=== PATIENT | female | born 1940 | race Caucasian/White ===

== ENCOUNTER 2017-04-20 15:27 | Inpatient (IN) | payer MEDICARE, BC ==
[~2017-04-20] VITALS: Ht 162.6 cm; Wt 87.0 kg
[2017-04-20 16:44] LABS: CLARITY,URINE CLEAR (Clear); COLOR,URINE YELLOW (Yellow); GLUCOSE, URINE NEGATIVE (Neg); KETONES,URINE NEGATIVE (Neg); LEUKOCYTE ESTERASE ,URINE NEGATIVE (Neg); NITRITES, URINE NEGATIVE (Neg); OCCULT BLOOD,URINE NEGATIVE (Neg); PROTEIN,URINE NEGATIVE (Neg); UROBILINOGEN,URINE 0.2 E.U/dL (0.2-1.0)
[2017-04-20 16:48] LABS: UA COLLECTION TYPE CLN CATCH MIDSTREAM
[2017-04-20 16:49] LABS: BASOPHILS # (AUTO) 0.1 X10'3 (0-0.2); EOSINOPHILS # (AUTO) 0.2 X10'3 (0-0.9); EOSINOPHILS % (AUTO) 1.6 % (0-6); HEMATOCRIT 40.5 % (35.0-45.0); HEMOGLOBIN 13.9 g/dl (12.0-16.0); LYMPHOCYTES # (AUTO) 1.4 X10'3 (1.1-4.8); LYMPHOCYTES % (AUTO) 9.3 % (21-51); MEAN CORPUSCULAR HGB CONC 34.4 % (33.0-36.5); MEAN PLATELET VOLUME 7.8 FL (7.4-10.4); MONOCYTES # (AUTO) 1.1 X10'3 (0-0.9); MONOCYTES % (AUTO) 7.4 % (2-12); NEUTROPHILS # (AUTO) 11.9 X10'3 (1.8-7.7); NEUTROPHILS % (AUTO) 80.7 % (42-75); PLATELET COUNT 251 X10'3 (140-440); RED BLOOD COUNT 4.35 X10'6 (4.20-5.60); RED CELL DISTRIBUTION WIDTH 13.3 % (11.5-14.5); WHITE BLOOD COUNT 14.7 X10'3 (4.5-11.0)
[2017-04-20 16:57] LABS: INR 0.9 INR; PARTIAL THROMBOPLASTIN TIME 31 SECONDS (22-32); PROTHROMBIN TIME 9.6 SECONDS (9.0-12.0)
[2017-04-20 17:03] LABS: ALANINE AMINOTRANSFERASE 31 U/L (12-78); ALBUMIN 3.9 G/DL (3.4-5.0); ALBUMIN/GLOBULIN RATIO 0.9 (1.1-1.5); ALKALINE PHOSPHATASE 131 IU/L (46-116); ANION GAP 11 (8-16); ASPARTATE AMINO TRANSFERASE 18 U/L (10-37); BILIRUBIN,TOTAL 0.5 MG/DL (0.1-1.0); BLOOD UREA NITROGEN 14 MG/DL (7-18); BUN/CREATININE RATIO 17.3 (6.6-38.0); CALCIUM 10.8 MG/DL (8.5-10.1); CHLORIDE 102 MMOL/L (99-107); CREATININE 0.81 MG/DL (0.40-0.90); GLUCOSE 101 MG/DL (70-104); POTASSIUM 3.8 MMOL/L (3.5-5.1); SODIUM 139 MMOL/L (135-145); TOTAL CARBON DIOXIDE 25.6 MMOL/L (24-32); TOTAL PROTEIN 8.3 G/DL (6.4-8.2); eGFR 69 ML/MIN
[2017-04-20] MEDS ORDERED: TETanus/Pertussis (Acell)/Diphther VAC/PF (Tdap-Adult) 0.5ml syringe IMVAC ONE (17:55)
[2017-04-20] MEDS ORDERED: LIDOcaine 1% 30ml preserv. free vial SQ STA (18:02)
[2017-04-20] MEDS ORDERED: bacitracin 15gm ointment TP ONE (18:35)
[2017-04-20] MEDS ORDERED: cefazolin 1gm/NS 100mL 100 ML IV ONE (18:40)
[2017-04-20] MEDS ORDERED: clindamycin phosphate inj 300 MG in dextrose 5%-water 50ml 48 ML IV ONE (19:12)
[2017-04-20] MEDS ORDERED: ondansetron/PF 4mg/2ml inj IV PRN (19:30)
[2017-04-20] MEDS ORDERED: mag hydrox/Alum hydrox/simeth 30ml oral suspension PO PRN (19:30)
[2017-04-20] MEDS ORDERED: magnesium hydroxide 30ml (MOM) UD suspension PO PRN (19:30)
[2017-04-20] MEDS ORDERED: acetaminophen 325mg tablet PO PRN (19:30)
[2017-04-20] MEDS ORDERED: SERT25TA PO (20:00)
[2017-04-20] MEDS ORDERED: FLEC100T2 PO (20:00)
[2017-04-20] MEDS ORDERED: SIMV20TA5 PO (20:00)
[2017-04-20] MEDS ORDERED: AMIT-189 PO (20:00)
[2017-04-20] MEDS ORDERED: [UNRECOGNIZED DRUG - CODE] PO (20:00)
[2017-04-20] MEDS ORDERED: LAMO100T2 PO (20:00)
[2017-04-20] MEDS ORDERED: PREG50CA PO (20:00)
[2017-04-20] MEDS: heparin, porcine 5000 units/ml vial SQ SCH (20:22)
[2017-04-20] MEDS: atorvastatin 20mg tablet PO SCH (21:00)
[2017-04-20] MEDS ORDERED: non-formulary drug (Simvastatin* (Zocor*) 2 TAB) PO SCH (21:00)
[2017-04-20] MEDS ORDERED: amitryptiline 50mg tablet PO SCH (21:00)
[2017-04-21] MEDS ORDERED: non-formulary drug (Pregabalin (Lyrica) 1 CAP) PO SCH
[2017-04-21] MEDS: pregabalin 25mg capsule PO SCH ×2 (00:47→08:00)
[2017-04-21] MEDS ORDERED: flecainide 50mg tablet PO SCH (01:50)
[2017-04-21] MEDS ORDERED: lamoTRIgine 100mg tablet PO ONE (01:50)
[2017-04-21] MEDS ORDERED: sertraline 50mg tablet PO ONE (01:50)
[2017-04-21 05:15] LABS: BASOPHILS % (AUTO) 0.2 % (0-1); EOSINOPHILS # (AUTO) 0.4 X10'3 (0-0.9); EOSINOPHILS % (AUTO) 3.5 % (0-6); HEMATOCRIT 38.1 % (35.0-45.0); HEMOGLOBIN 12.9 g/dl (12.0-16.0); LYMPHOCYTES # (AUTO) 1.3 X10'3 (1.1-4.8); LYMPHOCYTES % (AUTO) 11.6 % (21-51); MEAN CORPUSCULAR HEMOGLOBIN 32.2 PG (27.0-31.0); MEAN CORPUSCULAR VOLUME 94.9 FL (78-98); MEAN PLATELET VOLUME 7.6 FL (7.4-10.4); MONOCYTES # (AUTO) 1.1 X10'3 (0-0.9); MONOCYTES % (AUTO) 9.1 % (2-12); NEUTROPHILS # (AUTO) 8.8 X10'3 (1.8-7.7); NEUTROPHILS % (AUTO) 75.6 % (42-75); PLATELET COUNT 221 X10'3 (140-440); RED BLOOD COUNT 4.01 X10'6 (4.20-5.60); RED CELL DISTRIBUTION WIDTH 14.2 % (11.5-14.5); WHITE BLOOD COUNT 11.6 X10'3 (4.5-11.0)
[2017-04-21 05:32] LABS: ALANINE AMINOTRANSFERASE 25 U/L (12-78); ALBUMIN/GLOBULIN RATIO 0.8 (1.1-1.5); ALKALINE PHOSPHATASE 105 IU/L (46-116); ANION GAP 9 (8-16); ASPARTATE AMINO TRANSFERASE 14 U/L (10-37); BILIRUBIN,TOTAL 0.5 MG/DL (0.1-1.0); CALCIUM 10.1 MG/DL (8.5-10.1); CHLORIDE 107 MMOL/L (99-107); GLUCOSE 124 MG/DL (70-104); POTASSIUM 3.7 MMOL/L (3.5-5.1); SODIUM 141 MMOL/L (135-145); TOTAL CARBON DIOXIDE 24.8 MMOL/L (24-32); TOTAL PROTEIN 6.9 G/DL (6.4-8.2); eGFR 70 ML/MIN
[2017-04-21 05:52] LABS: BLOOD UREA NITROGEN 16 MG/DL (7-18)
[2017-04-21] MEDS ORDERED: non-formulary drug (Flecainide Acetate 1 TAB) PO SCH (08:00)
[2017-04-21] MEDS ORDERED: sertraline 25mg tablet PO SCH (08:00)
[2017-04-21] MEDS ORDERED: lamoTRIgine 100mg tablet PO SCH (08:00)
[2017-04-21] MEDS: heparin, porcine 5000 units/ml vial SQ SCH ×2 (09:16→20:38)
[2017-04-21] MEDS: flecainide 50mg tablet PO SCH ×2 (10:50→20:38)
[2017-04-21 12:16] VITALS: BP 143/67
[2017-04-21] MEDS ORDERED: LYR75C PO (12:25)
[2017-04-21] MEDS ORDERED: HYDROcodone/acetaminophen 5mg/325mg tablet PO PRN (14:10)
[2017-04-21] MEDS ORDERED: amitriptyline 10mg tablet PO SCH (15:00)
[2017-04-21] MEDS ORDERED: bisacodyl 5mg tablet.DR PO PRN (16:50)
[2017-04-21 17:16] VITALS: BP 141/83
[2017-04-21] MEDS ORDERED: famotidine 10mg tablet PO SCH (20:00)
[2017-04-21] MEDS: lactobacillus rhamnosus 10,000 MMU CELLS/CAPSULE PO SCH (20:37)
[2017-04-21] MEDS: docusate sod 100mg capsule PO SCH (20:37)
[2017-04-21] MEDS: famotidine 20mg tablet PO SCH (20:37)
[2017-04-21] MEDS: lamoTRIgine 100mg tablet PO SCH (20:38)
[2017-04-21] MEDS: pregabalin 75mg capsule PO SCH (20:38)
[2017-04-21] MEDS: atorvastatin 20mg tablet PO SCH (20:38)
[2017-04-21] MEDS: amitriptyline 10mg tablet PO SCH (20:38)
[2017-04-21] MEDS ORDERED: sertraline 50mg tablet PO SCH (21:00)
[2017-04-21] MEDS: sertraline 50mg tablet PO SCH (21:07)
[2017-04-21 22:00] VITALS: BP 145/77
[2017-04-22 06:00] VITALS: BP 135/74
[2017-04-22 06:30] LABS: BASOPHILS % (AUTO) 0.2 % (0-1); EOSINOPHILS # (AUTO) 0.5 X10'3 (0-0.9); EOSINOPHILS % (AUTO) 5.9 % (0-6); HEMATOCRIT 37.3 % (35.0-45.0); HEMOGLOBIN 12.7 g/dl (12.0-16.0); LYMPHOCYTES # (AUTO) 1.6 X10'3 (1.1-4.8); LYMPHOCYTES % (AUTO) 18.1 % (21-51); MEAN CORPUSCULAR HEMOGLOBIN 32.3 PG (27.0-31.0); MEAN CORPUSCULAR HGB CONC 34.1 % (33.0-36.5); MEAN CORPUSCULAR VOLUME 94.8 FL (78-98); MEAN PLATELET VOLUME 7.8 FL (7.4-10.4); MONOCYTES # (AUTO) 0.9 X10'3 (0-0.9); MONOCYTES % (AUTO) 10.7 % (2-12); NEUTROPHILS # (AUTO) 5.6 X10'3 (1.8-7.7); NEUTROPHILS % (AUTO) 65.1 % (42-75); PLATELET COUNT 232 X10'3 (140-440); RED BLOOD COUNT 3.93 X10'6 (4.20-5.60); RED CELL DISTRIBUTION WIDTH 14.3 % (11.5-14.5); WHITE BLOOD COUNT 8.6 X10'3 (4.5-11.0)
[2017-04-22 06:46] LABS: ALANINE AMINOTRANSFERASE 23 U/L (12-78); ALBUMIN/GLOBULIN RATIO 0.8 (1.1-1.5); ALKALINE PHOSPHATASE 104 IU/L (46-116); ANION GAP 9 (8-16); ASPARTATE AMINO TRANSFERASE 11 U/L (10-37); BILIRUBIN,TOTAL 0.4 MG/DL (0.1-1.0); BLOOD UREA NITROGEN 19 MG/DL (7-18); BUN/CREATININE RATIO 23.2 (6.6-38.0); CALCIUM 10.3 MG/DL (8.5-10.1); CHLORIDE 108 MMOL/L (99-107); CREATININE 0.82 MG/DL (0.40-0.90); GLUCOSE 129 MG/DL (70-104); POTASSIUM 4.1 MMOL/L (3.5-5.1); SODIUM 143 MMOL/L (135-145); TOTAL CARBON DIOXIDE 25.8 MMOL/L (24-32); eGFR 68 ML/MIN
[2017-04-22] MEDS: lactobacillus rhamnosus 10,000 MMU CELLS/CAPSULE PO SCH ×2 (08:45→21:54)
[2017-04-22] MEDS: docusate sod 100mg capsule PO SCH ×2 (08:45→21:54)
[2017-04-22] MEDS: famotidine 20mg tablet PO SCH ×2 (08:45→21:55)
[2017-04-22] MEDS: flecainide 50mg tablet PO SCH ×2 (08:46→21:55)
[2017-04-22] MEDS: amitriptyline 10mg tablet PO SCH ×4 (08:46→22:17)
[2017-04-22] MEDS: heparin, porcine 5000 units/ml vial SQ SCH ×2 (08:48→21:56)
[2017-04-22 10:00] VITALS: BP 133/58
[2017-04-22 18:00] VITALS: BP 149/73
[2017-04-22] MEDS: sertraline 50mg tablet PO SCH (21:53)
[2017-04-22] MEDS: pregabalin 75mg capsule PO SCH (21:53)
[2017-04-22] MEDS: atorvastatin 20mg tablet PO SCH (21:53)
[2017-04-22] MEDS: lamoTRIgine 100mg tablet PO SCH (22:15)
[2017-04-23 06:00] VITALS: BP 145/54
[2017-04-23 06:35] LABS: BASOPHILS % (AUTO) 0.3 % (0-1); EOSINOPHILS # (AUTO) 0.6 X10'3 (0-0.9); EOSINOPHILS % (AUTO) 6.5 % (0-6); HEMATOCRIT 37.8 % (35.0-45.0); HEMOGLOBIN 13.1 g/dl (12.0-16.0); LYMPHOCYTES # (AUTO) 1.7 X10'3 (1.1-4.8); MEAN CORPUSCULAR HEMOGLOBIN 32.6 PG (27.0-31.0); MEAN CORPUSCULAR HGB CONC 34.7 % (33.0-36.5); MEAN CORPUSCULAR VOLUME 93.9 FL (78-98); MEAN PLATELET VOLUME 7.7 FL (7.4-10.4); MONOCYTES # (AUTO) 0.8 X10'3 (0-0.9); MONOCYTES % (AUTO) 9.3 % (2-12); NEUTROPHILS # (AUTO) 5.5 X10'3 (1.8-7.7); NEUTROPHILS % (AUTO) 63.9 % (42-75); PLATELET COUNT 251 X10'3 (140-440); RED BLOOD COUNT 4.02 X10'6 (4.20-5.60); RED CELL DISTRIBUTION WIDTH 13.9 % (11.5-14.5); WHITE BLOOD COUNT 8.6 X10'3 (4.5-11.0)
[2017-04-23 07:07] LABS: ALANINE AMINOTRANSFERASE 26 U/L (12-78); ALBUMIN/GLOBULIN RATIO 0.8 (1.1-1.5); ALKALINE PHOSPHATASE 106 IU/L (46-116); ANION GAP 9 (8-16); ASPARTATE AMINO TRANSFERASE 15 U/L (10-37); BILIRUBIN,TOTAL 0.3 MG/DL (0.1-1.0); BLOOD UREA NITROGEN 20 MG/DL (7-18); CALCIUM 10.3 MG/DL (8.5-10.1); CHLORIDE 107 MMOL/L (99-107); CREATININE 0.87 MG/DL (0.40-0.90); GLUCOSE 137 MG/DL (70-104); POTASSIUM 4.5 MMOL/L (3.5-5.1); SODIUM 142 MMOL/L (135-145); TOTAL CARBON DIOXIDE 25.6 MMOL/L (24-32); eGFR 64 ML/MIN
[2017-04-23] MEDS: lactobacillus rhamnosus 10,000 MMU CELLS/CAPSULE PO SCH ×2 (07:41→20:18)
[2017-04-23] MEDS: flecainide 50mg tablet PO SCH ×2 (07:41→20:17)
[2017-04-23] MEDS: docusate sod 100mg capsule PO SCH ×2 (07:41→20:17)
[2017-04-23] MEDS: amitriptyline 10mg tablet PO SCH ×3 (07:41→20:27)
[2017-04-23] MEDS: famotidine 20mg tablet PO SCH ×2 (07:41→20:17)
[2017-04-23] MEDS: heparin, porcine 5000 units/ml vial SQ SCH ×2 (07:42→20:18)
[2017-04-23 10:00] VITALS: BP 130/60
[2017-04-23] MEDS: vancomycin/NS 1 GM ADD-VANTAGE 250 ML IV SCH ×2 (15:05→18:21)
[2017-04-23] MEDS ORDERED: atorvastatin 10mg tablet PO SCH (17:33)
[2017-04-23] MEDS: cefazolin 1gm/NS 100mL 100 ML IV SCH (17:35)
[2017-04-23 18:00] VITALS: BP 140/67
[2017-04-23] MEDS: pregabalin 75mg capsule PO SCH (20:17)
[2017-04-23] MEDS: lamoTRIgine 100mg tablet PO SCH (20:17)
[2017-04-23] MEDS: sertraline 50mg tablet PO SCH (20:17)
[2017-04-23 22:00] VITALS: BP 151/73
[2017-04-24] MEDS: cefazolin 1gm/NS 100mL 100 ML IV SCH ×2 (00:08→08:22)
[2017-04-24] MEDS: vancomycin inj 1,250 MG in normal saline 250ml IV soln 250 ML IV SCH ×2 (03:49→14:22)
[2017-04-24 05:47] LABS: BASOPHILS % (AUTO) 0.4 % (0-1); EOSINOPHILS # (AUTO) 0.5 X10'3 (0-0.9); EOSINOPHILS % (AUTO) 6.7 % (0-6); HEMATOCRIT 36.4 % (35.0-45.0); HEMOGLOBIN 12.6 g/dl (12.0-16.0); LYMPHOCYTES # (AUTO) 1.6 X10'3 (1.1-4.8); LYMPHOCYTES % (AUTO) 19.4 % (21-51); MEAN CORPUSCULAR HEMOGLOBIN 32.6 PG (27.0-31.0); MEAN CORPUSCULAR HGB CONC 34.6 % (33.0-36.5); MEAN CORPUSCULAR VOLUME 94.1 FL (78-98); MEAN PLATELET VOLUME 7.6 FL (7.4-10.4); MONOCYTES # (AUTO) 0.8 X10'3 (0-0.9); MONOCYTES % (AUTO) 9.4 % (2-12); NEUTROPHILS # (AUTO) 5.2 X10'3 (1.8-7.7); NEUTROPHILS % (AUTO) 64.1 % (42-75); PLATELET COUNT 253 X10'3 (140-440); RED BLOOD COUNT 3.87 X10'6 (4.20-5.60); RED CELL DISTRIBUTION WIDTH 13.4 % (11.5-14.5); WHITE BLOOD COUNT 8.1 X10'3 (4.5-11.0)
[2017-04-24 06:00] VITALS: BP 165/76
[2017-04-24 06:10] LABS: ALANINE AMINOTRANSFERASE 24 U/L (12-78); ALBUMIN 2.9 G/DL (3.4-5.0); ALBUMIN/GLOBULIN RATIO 0.7 (1.1-1.5); ALKALINE PHOSPHATASE 103 IU/L (46-116); ANION GAP 9 (8-16); ASPARTATE AMINO TRANSFERASE 15 U/L (10-37); BILIRUBIN,TOTAL 0.3 MG/DL (0.1-1.0); BLOOD UREA NITROGEN 22 MG/DL (7-18); BUN/CREATININE RATIO 22.7 (6.6-38.0); CALCIUM 10.3 MG/DL (8.5-10.1); CHLORIDE 107 MMOL/L (99-107); CREATININE 0.97 MG/DL (0.40-0.90); GLUCOSE 126 MG/DL (70-104); POTASSIUM 4.3 MMOL/L (3.5-5.1); SODIUM 140 MMOL/L (135-145); TOTAL CARBON DIOXIDE 24.5 MMOL/L (24-32); eGFR 56 ML/MIN
[2017-04-24] MEDS: amitriptyline 10mg tablet PO SCH ×2 (08:37→14:23)
[2017-04-24] MEDS: docusate sod 100mg capsule PO SCH (08:38)
[2017-04-24] MEDS: flecainide 50mg tablet PO SCH (08:38)
[2017-04-24] MEDS: famotidine 20mg tablet PO SCH (08:38)
[2017-04-24] MEDS: lactobacillus rhamnosus 10,000 MMU CELLS/CAPSULE PO SCH (08:38)
[2017-04-24] MEDS: heparin, porcine 5000 units/ml vial SQ SCH (08:39)
[2017-04-24 11:00] VITALS: BP 152/72
[2017-04-24] MEDS ORDERED: CEPH-572 PO (16:53)
[2017-04-24] MEDS ORDERED: LACTC PO (16:54)
[2017-04-25] MEDS ORDERED: VANCOMYCIN LEVEL IV ONE (13:30)
== END 2017-04-24 18:12 | disposition home or self-care (01) | DRG 872 ==
LOC: ER 15:27 → ED HOLD 19:29 → ORTHO 4S 04-21 11:40
PROVIDERS: ADMIT Internal Medicine; ATTEND Legal Medicine
PROC: 0R9M3ZX Drainage of Left Elbow Joint, Percutaneous Approach, Diagnostic (ICD-10-PCS; principal; 2017-04-20)
DX: A41.9 Sepsis, unspecified organism (principal); M00.9 Pyogenic arthritis, unspecified; E11.42 Type 2 diabetes mellitus with diabetic polyneuropathy; L03.114 Cellulitis of left upper limb; E66.9 Obesity, unspecified; D35.00 Benign neoplasm of unspecified adrenal gland; F31.9 Bipolar disorder, unspecified; G47.30 Sleep apnea, unspecified; G89.29 Other chronic pain; K59.09 Other constipation; M19.90 Unspecified osteoarthritis, unspecified site; M54.9 Dorsalgia, unspecified; Z96.653 Presence of artificial knee joint, bilateral; Z88.2 Allergy status to sulfonamides; Z88.0 Allergy status to penicillin; Z79.899 Other long term (current) drug therapy; Z68.32 Body mass index [BMI] 32.0-32.9, adult
CPT/HCPCS: 20605; 36415; 73080; 74176; 80053; 80305; 81003; 83036; 83605; 84145; 85025; 85610; 85730; 87040; 87070; 90471; 90715; 96365; 99285; A6212; A6223; A6446; J0690; J1644; J3370; J3490; J7030; J7060

== ENCOUNTER 2018-03-28 18:33 | Emergency (ER) | payer MEDICARE, BC ==
[~2018-03-28] VITALS: Ht 162.6 cm; Wt 74.8 kg
[~2018-03-28 18:33] MED LIST: AMIT-189 PO; FLEC100T2 PO; LACTC PO; LAMO100T2 PO; LYR75C PO; SERT25TA PO; SIMV20TA5 PO; [UNRECOGNIZED DRUG - CODE] PO
[2018-03-28 18:46] VITALS: BP 146/76
== END 2018-03-28 22:35 | disposition home or self-care (01) ==
LOC: ER 18:33
DX: S00.03XA Contusion of scalp, initial encounter (principal); S00.12XA Contusion of left eyelid and periocular area, initial encounter; S00.83XA Contusion of other part of head, initial encounter; M54.2 Cervicalgia; M25.511 Pain in right shoulder; Z88.0 Allergy status to penicillin; Z88.2 Allergy status to sulfonamides; Z79.899 Other long term (current) drug therapy; W01.0XXA Fall on same level from slipping, tripping and stumbling without subsequent striking against object, initial encounter; Y93.89 Activity, other specified; Y92.090 Kitchen in other non-institutional residence as the place of occurrence of the external cause; Y99.8 Other external cause status
CPT/HCPCS: 70450; 70486; 72125; 99284

== ENCOUNTER 2018-05-27 11:02 | Emergency (ER) | payer MEDICARE, BC ==
[~2018-05-27] VITALS: Ht 162.6 cm; Wt 75.0 kg
[2018-05-27 11:49] LABS: BASOPHILS % (AUTO) 0.3 % (0-1); EOSINOPHILS # (AUTO) 0.6 X10'3 (0-0.9); EOSINOPHILS % (AUTO) 6.4 % (0-6); HEMATOCRIT 36.3 % (35.0-45.0); LYMPHOCYTES # (AUTO) 1.3 X10'3 (1.1-4.8); MEAN CORPUSCULAR HEMOGLOBIN 31.5 PG (27.0-31.0); MEAN CORPUSCULAR HGB CONC 33.1 g/dL (33.0-36.5); MEAN CORPUSCULAR VOLUME 95.1 FL (78-98); MEAN PLATELET VOLUME 7.8 FL (7.4-10.4); MONOCYTES # (AUTO) 0.7 X10'3 (0-0.9); MONOCYTES % (AUTO) 7.5 % (2-12); NEUTROPHILS # (AUTO) 7.2 X10'3 (1.8-7.7); NEUTROPHILS % (AUTO) 72.8 % (42-75); PLATELET COUNT 215 X10'3 (140-440); RED BLOOD COUNT 3.82 X10'6 (4.20-5.60); RED CELL DISTRIBUTION WIDTH 13.6 % (11.5-14.5); WHITE BLOOD COUNT 9.9 X10'3 (4.5-11.0)
[2018-05-27 12:03] LABS: PARTIAL THROMBOPLASTIN TIME 30 SECONDS (22-32); PROTHROMBIN TIME 9.9 SECONDS (9.0-12.0)
[2018-05-27 12:05] LABS: ALANINE AMINOTRANSFERASE 20 U/L (12-78); ALBUMIN 3.3 G/DL (3.4-5.0); ALBUMIN/GLOBULIN RATIO 0.9 (1.1-1.5); ANION GAP 6 (8-16); ASPARTATE AMINO TRANSFERASE 14 U/L (10-37); BILIRUBIN,TOTAL 0.2 MG/DL (0.1-1.0); BLOOD UREA NITROGEN 21 MG/DL (7-18); BUN/CREATININE RATIO 23.1 (6.6-38.0); CALCIUM 10.3 MG/DL (8.5-10.1); CHLORIDE 103 MMOL/L (99-107); CREATININE 0.91 MG/DL (0.40-0.90); GLUCOSE 114 MG/DL (70-104); POTASSIUM 4.2 MMOL/L (3.5-5.1); SODIUM 133 MMOL/L (135-145); TOTAL CARBON DIOXIDE 24.2 MMOL/L (24-32); TOTAL PROTEIN 6.8 G/DL (6.4-8.2); eGFR 60 ML/MIN
[2018-05-27 12:06] LABS: ALKALINE PHOSPHATASE 114 IU/L (46-116)
--- NOTE | 2018-05-27 12:25 | NUR ---
dr. crawford at bedside.
[2018-05-27] MEDS ORDERED: albuterol 2.5 MG/3 ML nebule NEB ONE (12:30)
[2018-05-27] MEDS ORDERED: predniSONE 20 mg tablet PO ONE (12:50)
[2018-05-27] MEDS ORDERED: PRED20TA PO (13:02)
[2018-05-27] MEDS ORDERED: ALBU18HF2 INH (13:02)
[2018-05-27 13:21] VITALS: BP 138/71
== END 2018-05-27 13:24 | disposition home or self-care (01) ==
LOC: ER 11:03
DX: R06.2 Wheezing (principal); R05 Cough; I10 Essential (primary) hypertension; E78.00 Pure hypercholesterolemia, unspecified; Z88.0 Allergy status to penicillin; Z88.2 Allergy status to sulfonamides; Z79.899 Other long term (current) drug therapy
CPT/HCPCS: 36415; 71045; 80053; 83880; 84484; 85025; 85610; 85730; 93005; 94640; 94760; 99284; J7512

== ENCOUNTER 2018-09-19 07:20 | Day surgery (SDC) | payer MEDICARE, BC ==
[~2018-09-19] VITALS: Ht 162.6 cm; Wt 82.4 kg
[2018-09-19] VITALS (14 sets, daily range): BP systolic 133–192; BP diastolic 68–90
[~2018-09-19 07:20] MED LIST changes: +ALBU18HF2 INH
[2018-09-19] MEDS ORDERED: diphenhydrAMINE 25mg capsule PO PRN (07:40)
[2018-09-19] MEDS ORDERED: normal saline 1,000 ML IV SCH (07:40)
[2018-09-19] MEDS ORDERED: SIMV40TA4 PO (08:01)
[2018-09-19] MEDS ORDERED: SERT25TA5 PO (08:01)
[2018-09-19] MEDS ORDERED: AMLO-94 PO (08:01)
[2018-09-19] MEDS ORDERED: ASPI81TA52 PO (08:01)
[2018-09-19] MEDS ORDERED: LAMO25TA72 PO (08:01)
[2018-09-19] MEDS ORDERED: MELO-100 PO (08:01)
[2018-09-19] MEDS ORDERED: EST1T PO (08:01)
[2018-09-19 08:03] LABS: BASOPHILS % (AUTO) 0.5 % (0-1); EOSINOPHILS # (AUTO) 0.4 X10'3 (0-0.9); EOSINOPHILS % (AUTO) 6.5 % (0-6); HEMATOCRIT 38.1 % (35.0-45.0); HEMOGLOBIN 12.7 g/dl (12.0-16.0); LYMPHOCYTES # (AUTO) 1.4 X10'3 (1.1-4.8); LYMPHOCYTES % (AUTO) 25.2 % (21-51); MEAN CORPUSCULAR HEMOGLOBIN 32.1 PG (27.0-31.0); MEAN CORPUSCULAR HGB CONC 33.2 g/dL (33.0-36.5); MEAN CORPUSCULAR VOLUME 96.6 FL (78-98); MEAN PLATELET VOLUME 7.9 FL (7.4-10.4); MONOCYTES # (AUTO) 0.5 X10'3 (0-0.9); MONOCYTES % (AUTO) 8.9 % (2-12); NEUTROPHILS # (AUTO) 3.3 X10'3 (1.8-7.7); NEUTROPHILS % (AUTO) 58.9 % (42-75); PLATELET COUNT 205 X10'3 (140-440); RED BLOOD COUNT 3.95 X10'6 (4.20-5.60); RED CELL DISTRIBUTION WIDTH 13.2 % (11.5-14.5); WHITE BLOOD COUNT 5.7 X10'3 (4.5-11.0)
[2018-09-19] MEDS ORDERED: LOSA100T57 PO (08:03)
[2018-09-19 08:15] LABS: ALBUMIN 3.4 G/DL (3.4-5.0); ANION GAP 7 (8-16); BLOOD UREA NITROGEN 21 MG/DL (7-18); CALCIUM 10.3 MG/DL (8.5-10.1); CHLORIDE 110 MMOL/L (99-107); CREATININE 0.84 MG/DL (0.40-0.90); GLUCOSE 122 MG/DL (70-104); SODIUM 142 MMOL/L (135-145); TOTAL CARBON DIOXIDE 25.4 MMOL/L (24-32); eGFR 66 ML/MIN
[2018-09-19] MEDS ORDERED: LIDOcaine 1% 30ml preserv. free vial ONE (09:02)
[2018-09-19] MEDS ORDERED: fentaNYL/PF 50MCG/1 ML 2ML syringe ONE (09:02)
[2018-09-19] MEDS ORDERED: midazolam 2 mg/2 ml injection ONE (09:02)
[2018-09-19] MEDS ORDERED: iohexol 350 MG/ML 50ML vial IV ONE (09:02)
[2018-09-19] MEDS ORDERED: iohexol 350MG/ML 100ml bottle IV ONE (09:02)
== END 2018-09-19 14:45 | disposition home or self-care (01) ==
LOC: SSTAY O 07:20
PROVIDERS: ATTEND Internal Medicine Cardiovascular Disease
DX: R07.89 Other chest pain (principal); I10 Essential (primary) hypertension; I47.1 Supraventricular tachycardia; E78.00 Pure hypercholesterolemia, unspecified; Z79.899 Other long term (current) drug therapy; Z98.890 Other specified postprocedural states; Z96.653 Presence of artificial knee joint, bilateral; Z72.89 Other problems related to lifestyle; Z88.0 Allergy status to penicillin; Z88.2 Allergy status to sulfonamides
CPT/HCPCS: 36415; 80048; 85025; 85610; 93005; 93458; 99152; 99153; C1769; C1894; J1644; J2001; J2250; J3010; J7030; Q0163; Q9967; A4620; A6258; C1760

== ENCOUNTER 2018-12-12 17:51 | Emergency (ER) | payer MEDICARE, BC ==
[~2018-12-12] VITALS: Ht 162.6 cm; Wt 82.3 kg
[~2018-12-12 17:51] MED LIST changes: -ALBU18HF2 INH; -AMIT-189 PO; +AMLO-94 PO; +ASPI81TA52 PO; +EST1T PO; -LACTC PO; -LAMO100T2 PO; +LAMO25TA72 PO; +LOSA100T57 PO; -LYR75C PO; +MELO-100 PO; -SERT25TA PO; +SERT25TA5 PO; -SIMV20TA5 PO; +SIMV40TA4 PO; -[UNRECOGNIZED DRUG - CODE] PO
[2018-12-12 18:39] LABS: BASOPHILS % (AUTO) 0.5 % (0-1); EOSINOPHILS # (AUTO) 0.3 X10'3 (0-0.9); EOSINOPHILS % (AUTO) 2.9 % (0-6); HEMATOCRIT 38.7 % (35.0-45.0); HEMOGLOBIN 13.2 g/dl (12.0-16.0); LYMPHOCYTES # (AUTO) 1.3 X10'3 (1.1-4.8); LYMPHOCYTES % (AUTO) 15.6 % (21-51); MEAN CORPUSCULAR HEMOGLOBIN 32.9 PG (27.0-31.0); MEAN CORPUSCULAR VOLUME 96.8 FL (78-98); MEAN PLATELET VOLUME 7.7 FL (7.4-10.4); MONOCYTES # (AUTO) 0.7 X10'3 (0-0.9); MONOCYTES % (AUTO) 8.3 % (2-12); NEUTROPHILS # (AUTO) 6.3 X10'3 (1.8-7.7); NEUTROPHILS % (AUTO) 72.7 % (42-75); PLATELET COUNT 239 X10'3 (140-440); RED CELL DISTRIBUTION WIDTH 12.9 % (11.5-14.5); WHITE BLOOD COUNT 8.6 X10'3 (4.5-11.0)
[2018-12-12 19:03] LABS: ALANINE AMINOTRANSFERASE 20 U/L (12-78); ALBUMIN 3.8 G/DL (3.4-5.0); ALBUMIN/GLOBULIN RATIO 0.9 (1.1-1.5); ALKALINE PHOSPHATASE 107 IU/L (46-116); ANION GAP 7 (8-16); ASPARTATE AMINO TRANSFERASE 17 U/L (10-37); BILIRUBIN,TOTAL 0.4 MG/DL (0.1-1.0); BLOOD UREA NITROGEN 18 MG/DL (7-18); BUN/CREATININE RATIO 20.7 (6.6-38.0); CALCIUM 10.6 MG/DL (8.5-10.1); CHLORIDE 106 MMOL/L (99-107); CREATININE 0.87 MG/DL (0.40-0.90); GLUCOSE 86 MG/DL (70-104); POTASSIUM 4.3 MMOL/L (3.5-5.1); SODIUM 139 MMOL/L (135-145); TOTAL PROTEIN 7.9 G/DL (6.4-8.2); eGFR 63 ML/MIN
[2018-12-12 19:04] LABS: PARTIAL THROMBOPLASTIN TIME 27 SECONDS (22-32)
--- NOTE | 2018-12-12 20:46 | NUR ---
PT UP TO BR TO VOID, SBA WITH RN. PT WALING SLOW WITH STEADY GAIT.
[2018-12-12] MEDS ORDERED: PANT-47 PO (22:07)
[2018-12-12 22:27] VITALS: BP 137/76
== END 2018-12-12 22:36 | disposition home or self-care (01) ==
LOC: ER 17:53
DX: R10.13 Epigastric pain (principal); R07.89 Other chest pain; R11.0 Nausea; K59.00 Constipation, unspecified; I48.91 Unspecified atrial fibrillation; E78.00 Pure hypercholesterolemia, unspecified; I10 Essential (primary) hypertension; E11.9 Type 2 diabetes mellitus without complications; Z86.73 Personal history of transient ischemic attack (TIA), and cerebral infarction without residual deficits; Z88.0 Allergy status to penicillin; Z88.2 Allergy status to sulfonamides; Z79.899 Other long term (current) drug therapy; Z79.82 Long term (current) use of aspirin
CPT/HCPCS: 36415; 71045; 80053; 82948; 84484; 85025; 85610; 85730; 93005; 99284

== ENCOUNTER 2018-12-19 13:08 | Emergency (ER) | payer MEDICARE, BC ==
[~2018-12-19] VITALS: Ht 167.6 cm; Wt 79.6 kg
[~2018-12-19 13:08] MED LIST changes: +PANT-47 PO
[2018-12-19 13:13] VITALS: BP 147/78
[2018-12-19] MEDS ORDERED: mag hydrox/Alum hydrox/simeth 30ml oral suspension PO ONE (14:05)
[2018-12-19] MEDS ORDERED: LIDOcaine Viscous 15ml cup MM ONE (14:05)
--- NOTE | 2018-12-19 14:07 | NUR ---
Patient continues to yell and scream in lobby. Patient brought to triage 2 and provider asked to evaluate patient and to reassure. DARÍO Mejia saw patient and ordered CXR. After DARÍO left patient demanding a "real" doctor and a neck xray
--- NOTE | 2018-12-19 14:18 | NUR ---
Dr. Tijerina made aware of situation. Agrees to see pt. in triage 2. Went to call patient to triage 2 and patient is no longer in the lobby.
== END 2018-12-19 15:31 | disposition left against medical advice (07) ==
LOC: ER 13:10
DX: R06.02 Shortness of breath (principal); R19.8 Other specified symptoms and signs involving the digestive system and abdomen; R06.00 Dyspnea, unspecified; I48.91 Unspecified atrial fibrillation; E78.00 Pure hypercholesterolemia, unspecified; I10 Essential (primary) hypertension; E11.9 Type 2 diabetes mellitus without complications; Z86.73 Personal history of transient ischemic attack (TIA), and cerebral infarction without residual deficits; Z88.0 Allergy status to penicillin; Z88.2 Allergy status to sulfonamides; Z79.82 Long term (current) use of aspirin; Z79.899 Other long term (current) drug therapy
CPT/HCPCS: 71046; 99283

== ENCOUNTER 2020-03-02 16:13 | Emergency (ER) | payer MEDICARE, BC ==
[~2020-03-02] VITALS: Ht 162.6 cm; Wt 92.3 kg
[~2020-03-02 16:13] MED LIST changes: +SIMV-45 PO; -SIMV40TA4 PO
[2020-03-02] MEDS ORDERED: OLAN5TAB3 PO (19:59)
[2020-03-02] MEDS ORDERED: ARIP10TA15 PO (19:59)
[2020-03-02] MEDS ORDERED: AMLO-94 PO (20:07)
[2020-03-02] MEDS ORDERED: propofol 10mg/ml 20ml vial IV ONE (20:25)
[2020-03-02 21:30] LABS: BASOPHILS % (AUTO) 0.4 % (0-1); EOSINOPHILS % (AUTO) 0.1 % (0-6); HEMATOCRIT 37.3 % (35.0-45.0); HEMOGLOBIN 12.3 g/dl (12.0-16.0); LYMPHOCYTES # (AUTO) 0.6 X10'3 (1.1-4.8); LYMPHOCYTES % (AUTO) 5.4 % (21-51); MEAN CORPUSCULAR HEMOGLOBIN 31.5 PG (27.0-31.0); MEAN CORPUSCULAR HGB CONC 32.9 g/dL (33.0-36.5); MEAN CORPUSCULAR VOLUME 95.9 FL (78-98); MEAN PLATELET VOLUME 7.9 FL (7.4-10.4); MONOCYTES # (AUTO) 0.4 X10'3 (0-0.9); NEUTROPHILS # (AUTO) 10.1 X10'3 (1.8-7.7); NEUTROPHILS % (AUTO) 90.1 % (42-75); PLATELET COUNT 254 X10'3 (140-440); RED BLOOD COUNT 3.89 X10'6 (4.20-5.60); RED CELL DISTRIBUTION WIDTH 14.5 % (11.5-14.5); WHITE BLOOD COUNT 11.2 X10'3 (4.5-11.0)
[2020-03-02 21:33] LABS: ALANINE AMINOTRANSFERASE 33 U/L (12-78); ALBUMIN 3.9 G/DL (3.4-5.0); ALKALINE PHOSPHATASE 113 IU/L (46-116); ANION GAP 10 (8-16); ASPARTATE AMINO TRANSFERASE 30 U/L (10-37); BILIRUBIN,TOTAL 0.3 MG/DL (0.1-1.0); BLOOD UREA NITROGEN 27 MG/DL (7-18); BUN/CREATININE RATIO 25.5 (6.6-38.0); CALCIUM 10.6 MG/DL (8.5-10.1); CHLORIDE 105 MMOL/L (99-107); CREATININE 1.06 MG/DL (0.40-0.90); GLUCOSE 158 MG/DL (70-104); POTASSIUM 4.3 MMOL/L (3.5-5.1); SODIUM 139 MMOL/L (135-145); eGFR 50 ML/MIN
[2020-03-02 21:47] LABS: ETHANOL < 0.010 GM/DL (0.0-0.010)
[2020-03-02] MEDS ORDERED: morphine 10mg/ml inj. IV ONE (22:35)
--- NOTE | 2020-03-02 23:03 | NUR ---
PT REFUSING MORPHINE, STILL REQUESTING TO LEAVE, UNCOOPERATIVE BUT REDIRECTIBLE WITH GENTLE COACHING. DAUGHTER PATRICIO AT BEDSIDE. PATRICIO [phone]
--- NOTE | 2020-03-03 00:12 | NUR ---
Patient brought to ER overflow from main ER. Patient is delusional and angry. Patient attempts to walk out of overflow. Patient is given Ativam 1 mg IV. Patient is not redirectable at this time.
[2020-03-03] MEDS ORDERED: LORazepam 2 mg/ml vial IV ONE ×2 (00:20)
--- NOTE | 2020-03-03 00:20 | NUR ---
Patient continues to elope form unit. She is disoriented. Multiple attempts at redirection are unsuccessful at this time.
[2020-03-03] MEDS ORDERED: diphenhydrAMINE 50 mg/ml inj IV ONE (00:35)
--- NOTE | 2020-03-03 00:41 | NUR ---
Patient is now tired, she closes her eyes and starts to sleep. Two rails are up, bed is locked in a low position.
--- NOTE | 2020-03-03 02:54 | NUR ---
Patilents is sleeping in a low fowlers position. Good color, no distress.
--- NOTE | 2020-03-03 03:29 | NUR ---
Patient is awake, delusional, disoriented to time. Sitter at bedside. Patient is not directable at this time. Ativan and Benadryl given.
[2020-03-03] MEDS ORDERED: ESTR1TAB28 PO (05:14)
[2020-03-03] MEDS ORDERED: SERT50TA10 PO (05:14)
[2020-03-03] MEDS ORDERED: LAMO100T PO (05:14)
[2020-03-03] MEDS ORDERED: TAM50T PO (05:14)
[2020-03-03] MEDS ORDERED: AMLO10TA13 PO (06:03)
[2020-03-03] MEDS ORDERED: ARIPIPRAZOLE 10 MG TABLET PO SCH (08:00)
--- NOTE | 2020-03-03 08:10 | NUR ---
Patient had ground level fall in bathroom getting up from toilet seat. States she did not pass out, states she hit her teeth. All teeth intact and able to move all extremities. Assisted back to bed after vital signs taken and safely able to do so. Assessed by Dr Estevez after fall and no futher orders given. fall precautions taken and patient in view of Rn ast all times
--- NOTE | 2020-03-03 09:00 | NUR ---
Resting with eyes closed
--- NOTE | 2020-03-03 10:15 | NUR ---
Resting with eyes closed on back; shoulder sling in place to right arm.
[2020-03-03] MEDS: aspirin 81mg tablet.DR PO SCH (10:58)
[2020-03-03] MEDS: sertraline 25mg tablet PO SCH (10:58)
[2020-03-03] MEDS: losartan 50mg tablet PO SCH (10:58)
[2020-03-03] MEDS: estradiol 1mg tablet PO SCH (10:58)
[2020-03-03] MEDS: lamoTRIgine 100mg tablet PO SCH (10:59)
[2020-03-03] MEDS: flecainide 50mg tablet PO SCH ×2 (10:59→23:39)
--- NOTE | 2020-03-03 11:00 | NUR ---
Up to bathroom and patient very unsteady requiring standby assist throughout and assistance back to bed.
[2020-03-03 11:05] LABS: CLARITY,URINE SLIGHTLY CLOUDY (Clear); COLOR,URINE STRAW (Yellow); GLUCOSE, URINE NEGATIVE (Neg); KETONES,URINE NEGATIVE (Neg); LEUKOCYTE ESTERASE ,URINE TRACE (Neg); NITRITES, URINE NEGATIVE (Neg); OCCULT BLOOD,URINE SMALL (Neg); PROTEIN,URINE TRACE mg/dl (Neg); UROBILINOGEN,URINE 0.2 E.U/dL (0.2-1.0)
[2020-03-03 11:08] LABS: UA COLLECTION TYPE CLN CATCH MIDSTREAM
[2020-03-03 11:10] LABS: URINE AMPHETAMINE SCREEN NEGATIVE (Neg); URINE BARBITUATE SCREEN NEGATIVE (Neg); URINE BENZODIAZEPINES SCREEN NEGATIVE (Neg); URINE CANNABINOID SCREEN NEGATIVE (Neg); URINE COCAINE SCREEN NEGATIVE (Neg); URINE METHADONE SCREEN NEGATIVE (Neg); URINE OPIATE SCREEN NEGATIVE (Neg); URINE PHENCYCLIDINE SCREEN NEGATIVE (Neg)
[2020-03-03 11:13] LABS: BACTERIA,URINE 2+ /HPF (Neg); MUCUS STRANDS NONE SEEN /LPF (Neg); RBC,URINE 0-2 /HPF (0-2); SQUAMOUS EPITHELIAL CELL,UR MANY /LPF (FEW); WBC,URINE 0-4 /HPF (0-4)
--- NOTE | 2020-03-03 12:37 | NUR ---
Refusing to take her medications because they dont look like hers at home, though she agreed to the names and doses. Stood with her about 20 minutes reassuring her before she gave them back to me. Will hold and try again later.
--- NOTE | 2020-03-03 14:52 | NUR ---
Patient being evaluated by arron Lerner.
--- NOTE | 2020-03-03 15:47 | NUR ---
Resting on back with eyes closed, respirations normal. Refusing to wear sling on right arm
--- NOTE | 2020-03-03 17:30 | NUR ---
Up out of bed and asking to take a shower and get dressed again. Not easily redirectible. Requiring close supervision to prevent fall.
--- NOTE | 2020-03-03 19:05 | NUR ---
Assumed care of this patient that wants to leave. "My daughter, Amy must move to [place] to help me build houses and live with me."
[2020-03-03] MEDS ORDERED: OLANZAPINE 5 MG TABLET PO SCH (21:00)
[2020-03-03] MEDS ORDERED: atorvastatin 20mg tablet PO SCH (21:00)
--- NOTE | 2020-03-03 21:05 | NUR ---
Patient has fallen asleep on her left side. Breathing is unlabored. No s/s of distress.
--- NOTE | 2020-03-04 01:30 | NUR ---
Patient awake, confused, checking the time. She has taken arm sling off, and refused to put back on.
--- NOTE | 2020-03-04 02:42 | NUR ---
Patient is awake and up to use the restroom. Denies needs.
--- NOTE | 2020-03-04 04:08 | NUR ---
The patient is asleep on her left side. No s/s of distress.
--- NOTE | 2020-03-04 04:45 | NUR ---
PT ASLEEP ON HER LEFT SIDE RESP EVEN AND UNLABORED , PT IN THE DIRECT LINE OF SIGHT OF NURSING STAFF WILL COMNTINUE TO MONITOR AND REASSESS NEEDED
--- NOTE | 2020-03-04 04:54 | NUR ---
PT UP AND OUT OF BED TO NURSESD SATTION TO PRAY . REDIRECTED PT BACK TO BED
[2020-03-04 06:05] VITALS: BP_DIAS 71
--- NOTE | 2020-03-04 06:50 | NUR ---
Patient sleeping supine. No distress observed. Continue to monitor.
[2020-03-04] MEDS ORDERED: sertraline 25mg tablet PO SCH (08:00)
[2020-03-04] MEDS: estradiol 1mg tablet PO SCH (08:00)
--- NOTE | 2020-03-04 08:20 | NUR ---
Patient eating breakfast. No distress observed. Continue to monitor.
[2020-03-04] MEDS: aspirin 81mg tablet.DR PO SCH (08:40)
[2020-03-04 08:42] VITALS: BP_SYST 146
[2020-03-04] MEDS: losartan 50mg tablet PO SCH (08:42)
[2020-03-04] MEDS: lamoTRIgine 100mg tablet PO SCH (08:44)
[2020-03-04] MEDS: flecainide 50mg tablet PO SCH (08:44)
[2020-03-04] MEDS: sertraline 25mg tablet PO SCH (08:45)
[2020-03-04] MEDS ORDERED: sertraline 50mg tablet PO ONE (09:05)
[2020-03-04] MEDS ORDERED: amLODIPine 5mg tablet PO SCH (09:30)
--- NOTE | 2020-03-04 10:20 | NUR ---
TIKI Pena, speaking with patient. Continue to monitor.
--- NOTE | 2020-03-04 11:39 | NUR ---
Patient being read to and sung to by neighbor. Each sitting on their own bed. Continue to monitor.
--- NOTE | 2020-03-04 13:05 | NUR ---
Patient eating lunch. No distress observed. Continue to monitor.
--- NOTE | 2020-03-04 14:40 | NUR ---
Patient ambulatory, steady gait and is refusing to wear her shoulder immobilizer. Patient denies pain. Patient social and talking to peers and staff. No distress observed. Continue to monitor.
--- NOTE | 2020-03-04 15:55 | NUR ---
Tech and Security walked patient out to parking lot with RN following behind. Patient ambulatory, steady gait with all her belongings. Patient happy to be going home with daughter. Daughter taking pictures of patient with tech Olga and security as RN was walking up. Daughter started yelling at RN that "This is an illegal discharge!". RN explaining to daughter, Jami, that yes her mother has mental illness but she is not gravely disabled or a danger to herself due to her mental illness. Daughter kept yelling "Don't you see how many psychiatric medications she is on?" RN advised daughter that it was [facility] who evaluated patient twice and stated she does not meet criteria for a mental health hold. RN gave the patient her discharge instructions and tried to go over the information with the patient and the daughter, but the daughter was too angry. RN did give the daughter the brochure for [facility] on [address]. And advised daughter that she is being set up for Home Health with a Psychiatric Nurse. Daughter and patient left together.
[2020-03-05] MEDS ORDERED: sertraline 25mg tablet PO SCH (08:00)
== END 2020-03-04 16:10 | disposition home or self-care (01) ==
LOC: ER 16:13
DX: S42.251A Displaced fracture of greater tuberosity of right humerus, initial encounter for closed fracture (principal); I48.91 Unspecified atrial fibrillation; E78.00 Pure hypercholesterolemia, unspecified; I10 Essential (primary) hypertension; E11.9 Type 2 diabetes mellitus without complications; Z87.19 Personal history of other diseases of the digestive system; Z88.0 Allergy status to penicillin; Z88.2 Allergy status to sulfonamides; Z79.82 Long term (current) use of aspirin; Z79.899 Other long term (current) drug therapy; W06.XXXA Fall from bed, initial encounter; Z91.81 History of falling; Y93.89 Activity, other specified; Y92.89 Other specified places as the place of occurrence of the external cause; Y99.8 Other external cause status
CPT/HCPCS: 23665; 36415; 73020; 73030; 80053; 80305; 80320; 81001; 84443; 85025; 94799; 96374; 96375; 96376; 99152; 99153; 99285; J1200; J2060; J2704; 23650; 94760

== ENCOUNTER 2020-04-01 13:14 | Emergency (ER) | payer MEDICARE, BC ==
[~2020-04-01] VITALS: Ht 162.6 cm; Wt 90.9 kg
[~2020-04-01 13:14] MED LIST changes: -AMLO-94 PO; +AMLO10TA13 PO; -EST1T PO; +ESTR1TAB28 PO; -FLEC100T2 PO; +LAMO100T PO; -LAMO25TA72 PO; -MELO-100 PO; -PANT-47 PO; -SERT25TA5 PO; +SERT50TA10 PO; +TAM50T PO
[2020-04-01 14:10] LABS: BASOPHILS % (AUTO) 0.5 % (0-1); EOSINOPHILS # (AUTO) 0.2 X10'3 (0-0.9); HEMATOCRIT 36.2 % (35.0-45.0); LYMPHOCYTES # (AUTO) 1.8 X10'3 (1.1-4.8); LYMPHOCYTES % (AUTO) 25.4 % (21-51); MEAN CORPUSCULAR HEMOGLOBIN 31.5 PG (27.0-31.0); MEAN CORPUSCULAR HGB CONC 33.1 g/dL (33.0-36.5); MEAN CORPUSCULAR VOLUME 95.3 FL (78-98); MEAN PLATELET VOLUME 7.8 FL (7.4-10.4); MONOCYTES # (AUTO) 0.6 X10'3 (0-0.9); MONOCYTES % (AUTO) 8.9 % (2-12); NEUTROPHILS # (AUTO) 4.5 X10'3 (1.8-7.7); NEUTROPHILS % (AUTO) 62.2 % (42-75); PLATELET COUNT 246 X10'3 (140-440); RED BLOOD COUNT 3.79 X10'6 (4.20-5.60); RED CELL DISTRIBUTION WIDTH 14.8 % (11.5-14.5); WHITE BLOOD COUNT 7.2 X10'3 (4.5-11.0)
[2020-04-01 14:16] LABS: CLARITY,URINE CLEAR (Clear); COLOR,URINE YELLOW (Yellow); GLUCOSE, URINE NEGATIVE (Neg); KETONES,URINE NEGATIVE (Neg); LEUKOCYTE ESTERASE ,URINE MODERATE (Neg); NITRITES, URINE NEGATIVE (Neg); OCCULT BLOOD,URINE NEGATIVE (Neg); PROTEIN,URINE NEGATIVE (Neg); UROBILINOGEN,URINE 0.2 E.U/dL (0.2-1.0)
[2020-04-01 14:17] LABS: UA COLLECTION TYPE CLN CATCH MIDSTREAM
[2020-04-01 14:23] LABS: BACTERIA,URINE 1+ /HPF (Neg); MUCUS STRANDS NONE SEEN /LPF (Neg); RBC,URINE NONE SEEN /HPF (0-2); SQUAMOUS EPITHELIAL CELL,UR MODERATE /LPF (FEW); WBC,URINE 20-30 /HPF (0-4)
[2020-04-01 14:24] LABS: WBC CLUMPS,URINE FEW /HPF (NEGATIVE)
[2020-04-01 14:25] LABS: ALANINE AMINOTRANSFERASE 28 U/L (12-78); ALBUMIN 3.6 G/DL (3.4-5.0); ALBUMIN/GLOBULIN RATIO 0.9 (1.1-1.5); ALKALINE PHOSPHATASE 155 IU/L (46-116); ANION GAP 5 (8-16); ASPARTATE AMINO TRANSFERASE 14 U/L (10-37); BILIRUBIN,TOTAL 0.2 MG/DL (0.1-1.0); BLOOD UREA NITROGEN 17 MG/DL (7-18); BUN/CREATININE RATIO 17.3 (6.6-38.0); CALCIUM 10.7 MG/DL (8.5-10.1); CHLORIDE 106 MMOL/L (99-107); CREATININE 0.98 MG/DL (0.40-0.90); GLUCOSE 88 MG/DL (70-104); SODIUM 139 MMOL/L (135-145); TOTAL CARBON DIOXIDE 27.8 MMOL/L (24-32); TOTAL PROTEIN 7.4 G/DL (6.4-8.2); eGFR 55 ML/MIN
[2020-04-01 14:29] LABS: URINE AMPHETAMINE SCREEN NEGATIVE (Neg); URINE BARBITUATE SCREEN NEGATIVE (Neg); URINE BENZODIAZEPINES SCREEN NEGATIVE (Neg); URINE CANNABINOID SCREEN NEGATIVE (Neg); URINE COCAINE SCREEN NEGATIVE (Neg); URINE METHADONE SCREEN NEGATIVE (Neg); URINE OPIATE SCREEN NEGATIVE (Neg); URINE PHENCYCLIDINE SCREEN NEGATIVE (Neg)
[2020-04-01 14:34] LABS: ETHANOL < 0.010 GM/DL (0.0-0.010)
[2020-04-01] MEDS: DOXYCYCLINE 100MG CAPSULE PO SCH ×2 (14:50→20:34)
--- NOTE | 2020-04-01 15:00 | NUR ---
FAXED PACKET [facility]
--- NOTE | 2020-04-01 16:50 | NUR ---
DR. CHAMPION OFFICE CALLED. DR. CHAMPION SPOKE WITH DR. CORDOVA AGREED TO ADMIT PT.
--- NOTE | 2020-04-01 19:02 | NUR ---
assumed care of patient sitting upright in bed reading the bible . Pt has good eye contact and
--- NOTE | 2020-04-01 19:50 | NUR ---
PT UP OUT OF BED AMBULATING FROM BED TO BED . POOR REDIRECTION . PT JUST OVERTALKS WITH A PLEASSANT TONE , BUT ALMOST LIKE SHE ISNT LISTENING. PT ASKED TO GO BACK TO HER BED GIVEN PAPER AND MARKERS TO WRITE .
[2020-04-01] MEDS: atorvastatin 20mg tablet PO SCH (20:34)
[2020-04-01] MEDS: diphenhydrAMINE 25mg capsule PO ONE (20:34)
[2020-04-01] MEDS: flecainide 50mg tablet PO SCH (20:35)
--- NOTE | 2020-04-01 20:40 | NUR ---
PT REFUSED HER SCHDULED LIPITOR AND BENADRYL . 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 NOTIFIED MD MIN PATIENT REFUSED HER LIPITOR . EDUCATED PATIENT THAT IT WAS TIME TO GO TO BED . PT PUT HERSELF TO BED COVERED UP AND IS NOW COMFORTABLY RESTING IN THE [place] POSITION IN THE DIRECT LINE OF SITE OF NURSING STAFF. WILL CONTINUE TO MONITOR AND REASSESS NEEDED
--- NOTE | 2020-04-01 21:31 | NUR ---
Pt resting, refused Benadryl, given two warm blankets and lights dimmed.
--- NOTE | 2020-04-01 22:30 | NUR ---
PT SLEEPING PEACFULLY SUPINE RESP EVEN AND UNLABORED PT IN THE DIRECT LINE OF SIGHT OF NURSING STAFF. WILL CONTINUE TO MONITOR AND REASSESS
--- NOTE | 2020-04-01 23:33 | NUR ---
PT SLEEPING PEACFULLY ON HER LEFT SIDE RESP EVEN AND UNLABORED PT IN THE DIRECT LINE OF SIGHT OF NURSING STAFF. WILL CONTINUE TO MONITOR AND REASSESS
--- NOTE | 2020-04-02 01:20 | NUR ---
PT SLEEPING PEACFULLY SUPINE RESP EVEN AND UNLABORED PT IN THE DIRECT LINE OF SIGHT OF NURSING STAFF. WILL CONTINUE TO MONITOR AND REASSESS
--- NOTE | 2020-04-02 02:22 | NUR ---
PT SLEEPING PEACFULLY SUPINE RESP EVEN AND UNLABORED PT IN THE DIRECT LINE OF SIGHT OF NURSING STAFF. WILL CONTINUE TO MONITOR AND REASSESS
--- NOTE | 2020-04-02 03:30 | NUR ---
PT SLEEPING PEACFULLY ON HER RIGHT SIDE RESP EVEN AND UNLABORED PT IN THE DIRECT LINE OF SIGHT OF NURSING STAFF. WILL CONTINUE TO MONITOR AND REASSESS
[2020-04-02] MEDS: atorvastatin 20mg tablet PO SCH ×2 (04:06→09:05)
--- NOTE | 2020-04-02 04:18 | NUR ---
PT SLEEPING PEACFULLY ON HER RIGHT SIDE . RESP EVEN AND UNLABORED PT IN THE DIRECT LINE OF SIGHT OF NURSING STAFF. WILL CONTINUE TO MONITOR AND REASSESS
[2020-04-02 06:03] VITALS: BP_DIAS 81
--- NOTE | 2020-04-02 07:25 | NUR ---
PT HAS BEEN UP AND AMBULATED T0 BATHROOM. PT REMAINS CALM AND COOPERATIVE.
[2020-04-02] MEDS ORDERED: losartan 50mg tablet PO SCH (08:00)
[2020-04-02] MEDS ORDERED: lamoTRIgine 100mg tablet PO SCH (08:00)
[2020-04-02] MEDS ORDERED: estradiol 1mg tablet PO SCH (08:00)
[2020-04-02] MEDS ORDERED: aspirin 81mg tablet.DR PO SCH (08:00)
[2020-04-02] MEDS ORDERED: amLODIPine 5mg tablet PO SCH (08:00)
[2020-04-02] MEDS ORDERED: sertraline 50mg tablet PO SCH (08:00)
--- NOTE | 2020-04-02 08:15 | NUR ---
PT AWAKE AND EATING BREAKFAST TRAY.
--- NOTE | 2020-04-02 08:45 | NUR ---
PTS DAUGHTER CALLED PER PT REQUEST, DAUGHTER UNABLE TO VISIT SHE IS CURRENTLY "INSTRUCTING A CLASS". DAUGHTER REPORTS SHE CAN BE CALLED AFTER 1145.
[2020-04-02] MEDS: DOXYCYCLINE 100MG CAPSULE PO SCH (09:00)
[2020-04-02] MEDS: flecainide 50mg tablet PO SCH (09:06)
[2020-04-02 09:11] VITALS: BP_SYST 140
--- NOTE | 2020-04-02 13:58 | NUR ---
PT SPEAKING WITH MENTAL HEALTH COUNSELOR AT THIS TIME
--- NOTE | 2020-04-02 14:11 | NUR ---
SPOKE WITH PT'S ROOMMATE, KIERRA, WHO IS AGREEABLE TO PICKING UP PATIENT AND CARING FOR HER AT THEIR HOME. PRABHU HAS ALSO SPOKEN WITH KIERRA SEPARATELY
--- NOTE | 2020-04-02 14:19 | NUR ---
PER PRABHU, DIRECTOR FOR BEHAVIORAL HEALTH HAS DETERMINED THAT PT WILL BE ADMITTED TO [facility]. ROOMMATE KIERRA NOTIFIED
[2020-04-02] MEDS ORDERED: DOXY100C77 PO (14:48)
--- NOTE | 2020-04-02 15:00 | NUR ---
PT TO BE PLACED/ADMITTED TO [facility] PER DR. CHAMPION AND DR. BURNHAM.
--- NOTE | 2020-04-02 15:20 | NUR ---
TRIED TO CALL PTS DAUGHTER YARY PER PT REQUEST AND PHONE UNANSWERED , NO MESSAGE LEFT MSG BOX "FULL"
[2020-04-02] MEDS ORDERED: lactobacillus rhamnosus 10,000 MMU CELLS/CAPSULE PO SCH (20:00)
== END 2020-04-02 16:15 | disposition home or self-care (01) ==
LOC: ER 13:14
DX: N39.0 Urinary tract infection, site not specified (principal); F31.9 Bipolar disorder, unspecified; F22 Delusional disorders; M79.602 Pain in left arm; I48.91 Unspecified atrial fibrillation; E78.00 Pure hypercholesterolemia, unspecified; I10 Essential (primary) hypertension; E11.9 Type 2 diabetes mellitus without complications; Z86.73 Personal history of transient ischemic attack (TIA), and cerebral infarction without residual deficits; Z88.0 Allergy status to penicillin; Z88.2 Allergy status to sulfonamides; Z79.82 Long term (current) use of aspirin; Z79.899 Other long term (current) drug therapy
CPT/HCPCS: 36415; 80053; 80305; 80320; 81001; 84443; 85025; 99285; Q0163

== ENCOUNTER 2020-10-04 06:24 | Day surgery (SDC) | payer MEDICARE, BC ==
[~2020-10-04] VITALS: Ht 162.6 cm; Wt 93.9 kg
[2020-10-04] VITALS (10 sets, daily range): BP systolic 139–172; BP diastolic 67–82
[~2020-10-04 06:24] MED LIST changes: +ARIP10TA15 PO; +ATI1T PO; +DONE5TAB7 PO; -LAMO100T PO; +LAMO25TA5 PO; +OLAN5TAB75 PO; +OXCA300T16 PO; -SERT50TA10 PO; +TRAZ-251 PO
[2020-10-04] MEDS ORDERED: normal saline 1,000 ML IV SCH ×2 (07:50→10:30)
[2020-10-04] MEDS ORDERED: diphenhydrAMINE 25mg capsule PO PRN (07:50)
[2020-10-04] MEDS ORDERED: LIDOcaine/PRILOcaine 5gm cream TP ONE (08:00)
[2020-10-04] MEDS ORDERED: OXCA150T14 PO (08:08)
[2020-10-04] MEDS ORDERED: LAMO25TA41 PO (08:08)
[2020-10-04] MEDS ORDERED: DESV50TA PO (08:08)
[2020-10-04] MEDS ORDERED: LIDOcaine 1% (10mg/ml)w/preservative injection 20ml MDV ONE (08:45)
[2020-10-04] MEDS ORDERED: heparin 1,000unit/ml 10ml vial 10 ML ONE (08:45)
[2020-10-04] MEDS ORDERED: iohexol 350MG/ML 100ml bottle IV ONE (08:45)
[2020-10-04] MEDS ORDERED: iohexol 350 MG/ML 50ML vial IV ONE (08:45)
[2020-10-04] MEDS ORDERED: midazolam 1 mg/ML 2ml injection ONE ×2 (08:45→09:32)
[2020-10-04] MEDS ORDERED: fentaNYL/PF 50MCG/1 ML 2ML syringe ONE (08:45)
[2020-10-04] MEDS ORDERED: verapamil 2.5 mg/ml inj IV ONE (09:17)
[2020-10-04] MEDS ORDERED: nitroGLYCERIN-Tridil 50MG/D5W 250 ML IV ONE (09:17)
[2020-10-04 09:38] LABS: BASOPHILS % (AUTO) 0.1 % (0-1); EOSINOPHILS % (AUTO) 0 % (0-6); HEMATOCRIT 38.4 % (35.0-45.0); HEMOGLOBIN 12.9 g/dl (12.0-16.0); LYMPHOCYTES % (AUTO) 19.3 % (21-51); MEAN CORPUSCULAR HEMOGLOBIN 31.5 PG (27.0-31.0); MEAN CORPUSCULAR HGB CONC 33.5 g/dL (33.0-36.5); MEAN PLATELET VOLUME 7.7 FL (7.4-10.4); MONOCYTES # (AUTO) 0.4 X10'3 (0-0.9); MONOCYTES % (AUTO) 8.2 % (2-12); NEUTROPHILS # (AUTO) 3.7 X10'3 (1.8-7.7); NEUTROPHILS % (AUTO) 72.4 % (42-75); PLATELET COUNT 233 X10'3 (140-440); RED BLOOD COUNT 4.08 X10'6 (4.20-5.60); RED CELL DISTRIBUTION WIDTH 14.2 % (11.5-14.5); WHITE BLOOD COUNT 5.1 X10'3 (4.5-11.0)
[2020-10-04 09:46] LABS: ALBUMIN 3.4 G/DL (3.4-5.0); ANION GAP 4 (8-16); BLOOD UREA NITROGEN 17 MG/DL (7-18); BUN/CREATININE RATIO 19.1 (6.6-38.0); CALCIUM 9.8 MG/DL (8.5-10.1); CHLORIDE 109 MMOL/L (99-107); CREATININE 0.89 MG/DL (0.40-0.90); GLUCOSE 139 MG/DL (70-104); POTASSIUM 4.6 MMOL/L (3.5-5.1); SODIUM 142 MMOL/L (135-145); TOTAL CARBON DIOXIDE 28.6 MMOL/L (24-32); eGFR 61 ML/MIN
[2020-10-04 09:48] LABS: PARTIAL THROMBOPLASTIN TIME 25 SECONDS (22-32)
[2020-10-04] MEDS ORDERED: hydrALAZINE 20mg/ml inj. IV ONE (10:02)
[2020-10-04] MEDS ORDERED: HYDROcodone/acetaminophen 5mg/325mg tablet PO PRN (10:30)
[2020-10-04] MEDS ORDERED: OXAZEpam 15mg capsule PO PRN (10:30)
[2020-10-04] MEDS ORDERED: HYDROcodone/acetaminophen 10/325mg tab PO PRN (10:30)
[2020-10-04] MEDS ORDERED: ondansetron/PF 4mg/2ml inj IV PRN (10:30)
[2020-10-04] MEDS ORDERED: proCHLORperazine 10 MG/2 ml inj IV PRN (10:30)
== END 2020-10-04 13:40 | disposition home or self-care (01) ==
LOC: SSTAY O 06:24
PROVIDERS: ATTEND Internal Medicine Cardiovascular Disease
DX: R94.39 Abnormal result of other cardiovascular function study (principal); R06.09 Other forms of dyspnea; R07.89 Other chest pain; I47.1 Supraventricular tachycardia; I10 Essential (primary) hypertension; E78.00 Pure hypercholesterolemia, unspecified; Z72.89 Other problems related to lifestyle; Z96.653 Presence of artificial knee joint, bilateral; Z98.890 Other specified postprocedural states; Z90.49 Acquired absence of other specified parts of digestive tract; Z88.0 Allergy status to penicillin; Z88.2 Allergy status to sulfonamides; Z87.891 Personal history of nicotine dependence; Z79.899 Other long term (current) drug therapy; Z79.01 Long term (current) use of anticoagulants
CPT/HCPCS: 36415; 80048; 83735; 85025; 85730; 93005; 93458; 99152; 99153; C1769; C1894; J0360; J1644; J2001; J2250; J3010; J7030; Q0163; Q9967; 36217; A4620; A6258; J3490

== ENCOUNTER 2023-10-12 13:20 | Inpatient (IN) | payer MEDICARE, BC ==
[~2023-10-12] VITALS: Ht 165.1 cm; Wt 71.6 kg
[~2023-10-12 13:20] MED LIST changes: -ARIP10TA15 PO; -ATI1T PO; +DESV50TA PO; -DONE5TAB7 PO; +LAMO25TA41 PO; -LAMO25TA5 PO; -LOSA100T57 PO; +LOSA100T58 PO; -OLAN5TAB75 PO; +OXCA150T14 PO; -OXCA300T16 PO; -TRAZ-251 PO
[2023-10-12 14:06] LABS: BASOPHILS % (AUTO) 0.4 % (0-1); EOSINOPHILS # (AUTO) 0.1 X10'3 (0-0.9); EOSINOPHILS % (AUTO) 1.8 % (0-6); HEMATOCRIT 38.2 % (35.0-45.0); HEMOGLOBIN 12.6 g/dl (12.0-16.0); LYMPHOCYTES # (AUTO) 1.7 X10'3 (1.1-4.8); LYMPHOCYTES % (AUTO) 20.8 % (21-51); MEAN CORPUSCULAR HEMOGLOBIN 32.3 PG (27.0-31.0); MEAN CORPUSCULAR HGB CONC 33.1 g/dL (33.0-36.5); MEAN CORPUSCULAR VOLUME 97.8 FL (78-98); MEAN PLATELET VOLUME 7.6 FL (7.4-10.4); MONOCYTES # (AUTO) 0.7 X10'3 (0-0.9); NEUTROPHILS # (AUTO) 5.5 X10'3 (1.8-7.7); PLATELET COUNT 245 X10'3 (140-440); RED CELL DISTRIBUTION WIDTH 13.4 % (11.5-14.5); WHITE BLOOD COUNT 8.1 X10'3 (4.5-11.0)
[2023-10-12 14:25] LABS: ALBUMIN 3.6 G/DL (3.4-5.0); ANION GAP 6 (8-16); BLOOD UREA NITROGEN 21 MG/DL (7-18); CALCIUM 10.5 MG/DL (8.5-10.1); CHLORIDE 106 MMOL/L (99-107); GLUCOSE 96 MG/DL (70-104); POTASSIUM 4.1 MMOL/L (3.5-5.1); SODIUM 138 MMOL/L (135-145); TOTAL CARBON DIOXIDE 26.3 MMOL/L (24-32); eCRCL 40 ML/MIN; eGFR 53 ML/MIN
[2023-10-12 14:28] LABS: ETHANOL < 10 MG/DL (<10)
[2023-10-12] MEDS: OLANZapine **IM** 10 mg inj. IM ONE (15:00)
[2023-10-12] MEDS: OLANZAPINE 5 MG TABLET PO SCH (15:01)
[2023-10-12] MEDS ORDERED: LOSA50TA64 PO (17:49)
[2023-10-12] MEDS ORDERED: PANT20TA18 PO (17:49)
[2023-10-13] MEDS: OLANZapine **IM** 10 mg inj. IM ONE (01:28)
[2023-10-13 02:58] LABS: BILIRUBIN,URINE NEGATIVE (Neg); CLARITY,URINE CLEAR (Clear); COLOR,URINE YELLOW (Yellow); GLUCOSE, URINE NEGATIVE (Neg); KETONES,URINE NEGATIVE (Neg); LEUKOCYTE ESTERASE ,URINE NEGATIVE (Neg); NITRITES, URINE NEGATIVE (Neg); OCCULT BLOOD,URINE NEGATIVE (Neg); PROTEIN,URINE NEGATIVE (Neg); UROBILINOGEN,URINE 0.2 E.U/dL (0.2-1.0)
[2023-10-13 03:01] LABS: URINE AMPHETAMINE SCREEN NEGATIVE (Neg); URINE BARBITUATE SCREEN NEGATIVE (Neg); URINE BENZODIAZEPINES SCREEN NEGATIVE (Neg); URINE CANNABINOID SCREEN NEGATIVE (Neg); URINE COCAINE SCREEN NEGATIVE (Neg); URINE METHADONE SCREEN NEGATIVE (Neg); URINE OPIATE SCREEN NEGATIVE (Neg); URINE PHENCYCLIDINE SCREEN NEGATIVE (Neg)
[2023-10-13 03:05] LABS: UA COLLECTION TYPE CLN CATCH MIDSTREAM
[2023-10-13] MEDS: LORazepam 2 mg/ml vial IM ONE (11:25)
[2023-10-13] MEDS: haloperidol lactate 5mg/ml inj IM ONE (11:25)
[2023-10-13] MEDS: diphenhydrAMINE 50 mg/ml inj IM ONE (11:25)
[2023-10-13 22:51] VITALS: BP 145/68; PULSE 60; RESP 16; TEMP 98.2; O2SAT 100
[2023-10-14] MEDS ORDERED: mag hydrox/Alum hydrox/simeth 30ml oral suspension PO PRN (01:10)
[2023-10-14] MEDS ORDERED: acetaminophen 325mg tablet PO PRN ×2 (01:10)
[2023-10-14 07:00] VITALS: BP 140/81; PULSE 63; RESP 16; TEMP 97; O2SAT 99
[2023-10-14] MEDS: aspirin 81mg, enteric-coated 1 TAB TABLET.DR PO SCH (07:58)
[2023-10-14] MEDS: DESVENLAFAXINE 50 MG PO SCH (07:59)
[2023-10-14] MEDS: LAMOTRIGINE PO SCH (07:59)
[2023-10-14] MEDS: pantoprazole 40mg Tablet.DR PO SCH (08:00)
[2023-10-14] MEDS: losartan 50mg tablet PO SCH (08:00)
[2023-10-14] MEDS: estradiol 1mg tablet PO SCH (08:00)
[2023-10-14] MEDS: flecainide 50mg tablet PO SCH (08:00)
[2023-10-14] MEDS: oxcarbazepine 150mg tablet PO SCH ×2 (08:00→20:00)
[2023-10-14] MEDS: amLODIPine 5mg tablet PO SCH (08:00)
[2023-10-14 19:27] VITALS: RESP 14; O2SAT 98
[2023-10-14 19:30] VITALS: BP 145/98; PULSE 70; RESP 14; TEMP 98.8; O2SAT 98
[2023-10-14] MEDS: aripiprazole 10MG tablet PO SCH (20:00)
[2023-10-14] MEDS: lamoTRIgine 25mg tablet PO SCH (20:06)
[2023-10-14] MEDS: OLANZAPINE 5 MG TABLET PO SCH (20:06)
[2023-10-14] MEDS: OLANZapine 5mg rapidly disint. tablet PO PRN (20:24)
[2023-10-15 07:00] VITALS: BP 116/56; PULSE 61; RESP 16; TEMP 97.4; O2SAT 98
[2023-10-15] MEDS: clonazePAM 1mg tablet PO PRN (13:47)
[2023-10-16 07:30] VITALS: BP 187/63; PULSE 79; RESP 18; TEMP 97.9; O2SAT 92
[2023-10-16 10:26] VITALS: BP 147/59; PULSE 84
[2023-10-16] MEDS: loperamide 2mg capsule PO PRN (11:32)
[2023-10-16] MEDS ORDERED: JUVEN Smoothie Arginine/Glut./Ca2+Bmb (Juven 19.3pkt) 240ml cup PO SCH (18:00)
[2023-10-16] MEDS: LORazepam 2 mg/ml vial IM ONE (18:52)
[2023-10-16] MEDS: LORazepam 1 MG tablet PO ONE (18:52)
[2023-10-16] MEDS: OLANZapine **IM** 10 mg inj. IM ONE (18:58)
[2023-10-17 07:30] VITALS: BP 138/59; PULSE 63; RESP 16; O2SAT 97
[2023-10-18 07:30] VITALS: BP 137/59; PULSE 105; RESP 16; TEMP 97.1; O2SAT 98
[2023-10-18] MEDS: lactose-reduced food (Ensure Enlive) - 237ml bottle PO SCH (17:47)
[2023-10-18 20:36] VITALS: BP 145/76; PULSE 93; RESP 16; TEMP 97.7; O2SAT 16
[2023-10-19 07:00] VITALS: BP 125/64; PULSE 4; RESP 17; TEMP 97.4; O2SAT 95
[2023-10-19 19:22] VITALS: RESP 14; O2SAT 98
[2023-10-19 19:25] VITALS: BP 99/56; PULSE 72; RESP 14; TEMP 97.6; O2SAT 98
[2023-10-20 08:00] VITALS: BP 161/70; PULSE 74; RESP 16; TEMP 98.4; O2SAT 98
[2023-10-20 19:00] VITALS: RESP 16
[2023-10-20] MEDS: traZODone 50mg tablet PO PRN (21:02)
[2023-10-20] MEDS: olanzapine 10mg tablet PO SCH (21:03)
[2023-10-21 07:32] VITALS: PULSE 70; RESP 16; TEMP 97.4
[2023-10-21] MEDS: ziprasidone 20mg capsule PO SCH (08:00)
[2023-10-21] MEDS ORDERED: lisinopril 10 MG tablet PO SCH (08:00)
[2023-10-21] MEDS: HYDROchlorothiazide 25mg tablet PO SCH (08:00)
[2023-10-21 19:00] VITALS: RESP 20; O2SAT 85
[2023-10-21 20:00] VITALS: BP 146/53; PULSE 79; RESP 20; TEMP 97.7
[2023-10-22 08:00] VITALS: BP 102/56; PULSE 84; RESP 16; TEMP 97.7; O2SAT 99
[2023-10-22 20:00] VITALS: RESP 18
[2023-10-23 07:30] VITALS: BP 110/64; PULSE 91; RESP 16; TEMP 97.1
[2023-10-23 20:00] VITALS: BP 109/61; PULSE 73; RESP 16; TEMP 97.8; O2SAT 93
[2023-10-24 07:30] VITALS: BP 127/74; PULSE 75; RESP 20; TEMP 97.1; O2SAT 100
[2023-10-24 19:36] VITALS: O2SAT 95
[2023-10-24 19:39] VITALS: O2SAT 95
[2023-10-24] MEDS: magnesium hydroxide 30ml (MOM) UD suspension PO PRN (21:27)
[2023-10-25 07:30] VITALS: BP 125/51; PULSE 76; RESP 16; TEMP 98.3; O2SAT 97
[2023-10-25 19:26] VITALS: RESP 72; O2SAT 94
[2023-10-25 19:27] VITALS: BP 114/54; PULSE 72; RESP 16; TEMP 97.6; O2SAT 94
[2023-10-26 07:30] VITALS: BP 111/53; PULSE 77; RESP 16; TEMP 97.5; O2SAT 100
[2023-10-26 19:20] VITALS: RESP 16; O2SAT 98
[2023-10-26 19:21] VITALS: BP 115/58; PULSE 70; RESP 16; TEMP 96.4; O2SAT 98
[2023-10-27 07:30] VITALS: BP 120/63; PULSE 71; RESP 18; TEMP 97.8; O2SAT 95
[2023-10-27 19:40] VITALS: RESP 16; O2SAT 96
[2023-10-27 19:41] VITALS: BP 134/57; PULSE 63; RESP 16; TEMP 97.2; O2SAT 96
[2023-10-28 07:00] VITALS: BP 113/74; PULSE 68; RESP 16; TEMP 97.1; O2SAT 96
[2023-10-28] MEDS: oxcarbazepine 150mg tablet PO SCH (08:00)
[2023-10-28] MEDS: oxcarbazepine 150mg tablet PO ONE (08:10)
[2023-10-28 08:11] VITALS: BP_SYST 113; PULSE 68
[2023-10-28 19:26] VITALS: RESP 18
[2023-10-29 07:00] VITALS: RESP 14
[2023-10-29 08:00] VITALS: RESP 14
[2023-10-29] MEDS ORDERED: OLAN10TA73 PO (11:27)
[2023-10-29] MEDS ORDERED: OXCA600T9 PO ×2 (11:27→19:03)
[2023-10-29] MEDS ORDERED: CLON1TAB12 PO (11:27)
[2023-10-29] MEDS ORDERED: HYDR25TA4 PO (11:27)
[2023-10-29] MEDS ORDERED: CLON-850 PO (18:58)
[2023-10-29] MEDS ORDERED: OLAN5TAB5 PO (19:06)
[2023-10-29] MEDS ORDERED: HYDR25TA5 PO (19:08)
[2023-10-29] MEDS ORDERED: LAMO25TA94 PO (20:22)
== END 2023-10-29 13:30 | DRG 885 ==
LOC: ER 13:20 → ADULT MH 10-13 17:31 → UNDOADMIN 10-13 22:54 → ADULT MH 10-13 22:54 → UNDODISIN 10-29 13:35 → TMPLOALOC 10-29 13:35 → ADULT MH 10-29 13:35 → UNDOLOA 10-29 13:35 → ADULT MH 10-29 14:15 → UNDOLOA 10-29 14:15 → TMPLOALOC 10-29 14:15
PROVIDERS: ADMIT Psychiatry & Neurology Psychiatry; ATTEND Psychiatry & Neurology Psychiatry
PROC: GZHZZZZ Group Psychotherapy (ICD-10-PCS; principal; 2023-10-15)
PROC: GZ51ZZZ Individual Psychotherapy, Behavioral (ICD-10-PCS; 2023-10-15)
DX: F31.9 Bipolar disorder, unspecified (principal); F23 Brief psychotic disorder; E78.00 Pure hypercholesterolemia, unspecified; E11.9 Type 2 diabetes mellitus without complications; I10 Essential (primary) hypertension; I25.10 Atherosclerotic heart disease of native coronary artery without angina pectoris; K57.90 Diverticulosis of intestine, part unspecified, without perforation or abscess without bleeding; Z20.822 Contact with and (suspected) exposure to COVID-19; I48.91 Unspecified atrial fibrillation; J44.9 Chronic obstructive pulmonary disease, unspecified; K21.9 Gastro-esophageal reflux disease without esophagitis; Z88.2 Allergy status to sulfonamides; Z88.0 Allergy status to penicillin; Z83.3 Family history of diabetes mellitus; Z91.199 Patient's noncompliance with other medical treatment and regimen due to unspecified reason; Z79.82 Long term (current) use of aspirin; Z79.899 Other long term (current) drug therapy
CPT/HCPCS: 36415; 80048; 80305; 80320; 81003; 84443; 85025; 87081; 87811; 93005; 96372; 99285; A6250; C1758; J1200; J1630; J2060; J3490

== ENCOUNTER 2023-12-09 18:08 | Inpatient (IN) | payer MEDICARE, MEDICAID, BC ==
[~2023-12-09] VITALS: Ht 162.6 cm; Wt 70.5 kg
[~2023-12-09 18:08] MED LIST changes: +ARIP10TA87 PO; +ASPI-1071 PO; +CLON-850 PO; -DESV50TA PO; +EST1T PO; +HYDR25TA4 PO; +HYDR25TA5 PO; -LAMO25TA41 PO; +LAMO25TA94 PO; +LOSA50TA64 PO; +OLAN5TAB5 PO; -OXCA150T14 PO; +OXCA600T9 PO; +PANT20TA18 PO; +PANT40TA54 PO; -SIMV-45 PO
[2023-12-09] MEDS: diphenhydrAMINE 50 mg/ml inj IM ONE (18:40)
[2023-12-09] MEDS: LORazepam 2 mg/ml vial IM ONE (18:40)
[2023-12-09 18:53] LABS: BASOPHILS % (AUTO) 0.7 % (0-1); EOSINOPHILS # (AUTO) 0.1 X10'3 (0-0.9); EOSINOPHILS % (AUTO) 2.5 % (0-6); HEMOGLOBIN 11.8 g/dl (12.0-16.0); LYMPHOCYTES # (AUTO) 1.6 X10'3 (1.1-4.8); LYMPHOCYTES % (AUTO) 31.6 % (21-51); MEAN CORPUSCULAR HEMOGLOBIN 32.2 PG (27.0-31.0); MEAN CORPUSCULAR HGB CONC 33.7 g/dL (33.0-36.5); MEAN CORPUSCULAR VOLUME 95.5 FL (78-98); MEAN PLATELET VOLUME 7.9 FL (7.4-10.4); MONOCYTES # (AUTO) 0.5 X10'3 (0-0.9); MONOCYTES % (AUTO) 10.1 % (2-12); NEUTROPHILS # (AUTO) 2.8 X10'3 (1.8-7.7); NEUTROPHILS % (AUTO) 55.1 % (42-75); PLATELET COUNT 257 X10'3 (140-440); RED BLOOD COUNT 3.66 X10'6 (4.20-5.60); RED CELL DISTRIBUTION WIDTH 13.8 % (11.5-14.5); WHITE BLOOD COUNT 5.1 X10'3 (4.5-11.0)
[2023-12-09 19:11] LABS: ALBUMIN 3.8 G/DL (3.4-5.0); ANION GAP 4 (8-16); BLOOD UREA NITROGEN 15 MG/DL (7-18); BUN/CREATININE RATIO 14.9 (10.0-20.0); CALCIUM 10.8 MG/DL (8.5-10.1); CHLORIDE 106 MMOL/L (99-107); CREATININE 1.01 MG/DL (0.40-0.90); ETHANOL < 10 MG/DL (<10); GLUCOSE 98 MG/DL (70-104); SODIUM 139 MMOL/L (135-145); THYROID STIMULATING HORMONE 1.54 ulU/ml (0.34-4.50); TOTAL CARBON DIOXIDE 28.7 MMOL/L (24-32); eCRCL 38 ML/MIN; eGFR 53 ML/MIN
[2023-12-09 19:23] LABS: URINE AMPHETAMINE SCREEN NEGATIVE (Neg); URINE BARBITUATE SCREEN NEGATIVE (Neg); URINE BENZODIAZEPINES SCREEN NEGATIVE (Neg); URINE CANNABINOID SCREEN NEGATIVE (Neg); URINE COCAINE SCREEN NEGATIVE (Neg); URINE METHADONE SCREEN NEGATIVE (Neg); URINE OPIATE SCREEN NEGATIVE (Neg); URINE PHENCYCLIDINE SCREEN NEGATIVE (Neg)
[2023-12-09 19:25] LABS: BILIRUBIN,URINE NEGATIVE (Neg); CLARITY,URINE CLEAR (Clear); COLOR,URINE YELLOW (Yellow); GLUCOSE, URINE NEGATIVE (Neg); KETONES,URINE NEGATIVE (Neg); LEUKOCYTE ESTERASE ,URINE SMALL (Neg); NITRITES, URINE NEGATIVE (Neg); OCCULT BLOOD,URINE NEGATIVE (Neg); PROTEIN,URINE NEGATIVE (Neg); UROBILINOGEN,URINE 0.2 E.U/dL (0.2-1.0)
[2023-12-09 19:28] LABS: UA COLLECTION TYPE CLN CATCH MIDSTREAM
[2023-12-09 19:34] LABS: BACTERIA,URINE FEW /HPF (Neg); MUCUS STRANDS NONE SEEN /LPF (Neg); RBC,URINE NONE SEEN /HPF (0-2); SQUAMOUS EPITHELIAL CELL,UR FEW /LPF (FEW)
[2023-12-10] MEDS ORDERED: PROM118S5 PO (01:04)
[2023-12-10] MEDS ORDERED: FLEC50TA28 PO (01:04)
[2023-12-10] MEDS ORDERED: AMLO2.5T2 PO (03:00)
[2023-12-10] MEDS ORDERED: PANT20TA18 PO (03:00)
[2023-12-10] MEDS ORDERED: LAMO25TA41 PO (03:00)
[2023-12-10] MEDS ORDERED: FLEC50TA PO (03:00)
[2023-12-10] MEDS ORDERED: DESV50TA20 PO (03:00)
[2023-12-10] MEDS ORDERED: NITR0.4T51 SL (03:00)
[2023-12-10] MEDS ORDERED: PANT-47 PO (08:21)
[2023-12-10] MEDS ORDERED: AMLO10TA5 PO (08:21)
[2023-12-10] MEDS ORDERED: ARIP10TA14 PO (08:21)
[2023-12-10] MEDS ORDERED: LOSA50TA64 PO (08:33)
[2023-12-10] MEDS ORDERED: EST1T PO (08:33)
[2023-12-10 13:56] VITALS: BP 139/63; PULSE 63; RESP 18; TEMP 97.6; O2SAT 94
[2023-12-10] MEDS ORDERED: mag hydrox/Alum hydrox/simeth 30ml oral suspension PO PRN (14:15)
[2023-12-10] MEDS ORDERED: loperamide 2mg capsule PO PRN (14:15)
[2023-12-10 14:50] VITALS: RESP 18; O2SAT 94
[2023-12-10 19:00] VITALS: RESP 16; O2SAT 99
[2023-12-10 20:00] VITALS: BP 140/80; PULSE 68; RESP 16; TEMP 98.7; O2SAT 99
[2023-12-10] MEDS: flecainide 50mg tablet PO SCH (21:36)
[2023-12-11 07:30] VITALS: BP 135/65; PULSE 62; RESP 14; TEMP 97.7; O2SAT 99
[2023-12-11] MEDS: amLODIPine 5mg tablet PO SCH (07:52)
[2023-12-11] MEDS: aspirin 81mg, enteric-coated 1 TAB TABLET.DR PO SCH (07:52)
[2023-12-11] MEDS: aripiprazole 10MG tablet PO SCH (07:53)
[2023-12-11] MEDS: losartan 50mg tablet PO SCH (07:53)
[2023-12-11] MEDS: pantoprazole 40mg Tablet.DR PO SCH (07:53)
[2023-12-11] MEDS: estradiol 1mg tablet PO SCH (07:55)
[2023-12-11] MEDS: HYDROchlorothiazide 25mg tablet PO SCH (07:55)
[2023-12-11 19:00] VITALS: RESP 16; O2SAT 97
[2023-12-11 20:00] VITALS: BP 121/64; PULSE 60; RESP 16; TEMP 98.3; O2SAT 97
[2023-12-11] MEDS: OLANZapine 5mg rapidly disint. tablet PO SCH (21:00)
[2023-12-12 07:30] VITALS: BP 102/58; PULSE 71; RESP 16; TEMP 97.8; O2SAT 98
[2023-12-12] MEDS: divalproex sod 125mg sprinkle cap PO SCH (08:16)
[2023-12-12 19:00] VITALS: RESP 16
[2023-12-13 07:58] VITALS: BP 130/64; PULSE 70; RESP 14; TEMP 98.3; O2SAT 98
[2023-12-13] MEDS: lamoTRIgine 25mg tablet PO ONE (12:29)
[2023-12-13] MEDS: aripiprazole 10MG tablet PO ONE (14:21)
[2023-12-13 19:00] VITALS: RESP 16; O2SAT 99
[2023-12-13 20:00] VITALS: BP 105/52; PULSE 61; RESP 16; TEMP 97.4
[2023-12-13] MEDS: lamoTRIgine 25mg tablet PO SCH (20:36)
[2023-12-14 07:00] VITALS: RESP 16; O2SAT 96
[2023-12-14 08:00] VITALS: BP 141/71; PULSE 74; RESP 16; TEMP 98.6; O2SAT 99
[2023-12-14] MEDS: aripiprazole 15 MG tablet PO SCH (08:39)
[2023-12-14 20:00] VITALS: RESP 18
[2023-12-15 07:00] VITALS: RESP 13; O2SAT 99
[2023-12-15 08:00] VITALS: BP 115/59; PULSE 57; RESP 13; TEMP 97; O2SAT 99
[2023-12-15] MEDS: magnesium hydroxide 30ml (MOM) UD suspension PO PRN (08:09)
[2023-12-15 19:00] VITALS: RESP 16; O2SAT 98
[2023-12-15 20:36] VITALS: BP 156/59; PULSE 73; RESP 16; O2SAT 98
[2023-12-16 07:00] VITALS: RESP 13; O2SAT 97
[2023-12-16 08:00] VITALS: BP 121/54; PULSE 66; RESP 13; TEMP 98.8; O2SAT 97
[2023-12-16 19:00] VITALS: RESP 16; O2SAT 97
[2023-12-16 19:30] VITALS: BP 129/56; PULSE 71; RESP 14; TEMP 98.4; O2SAT 97
[2023-12-17 07:00] VITALS: RESP 17; O2SAT 99
[2023-12-17 08:00] VITALS: BP 116/59; PULSE 65; RESP 17; TEMP 97.5; O2SAT 99
[2023-12-17 19:00] VITALS: RESP 16; O2SAT 98
[2023-12-17 19:33] VITALS: BP 113/60; PULSE 62; RESP 15; TEMP 98.4; O2SAT 98
[2023-12-18 07:00] VITALS: RESP 16
[2023-12-18 08:00] VITALS: RESP 16
[2023-12-18 19:07] VITALS: BP 129/64; PULSE 87; RESP 20; TEMP 97.5; O2SAT 97
[2023-12-18 20:00] VITALS: RESP 20; O2SAT 97
[2023-12-19 07:00] VITALS: RESP 16; O2SAT 100
[2023-12-19 08:00] VITALS: BP 112/56; PULSE 66; RESP 16; TEMP 97.8; O2SAT 100
[2023-12-19 19:21] VITALS: BP 122/52; PULSE 66; RESP 14; TEMP 96.5; O2SAT 97
[2023-12-20 07:00] VITALS: BP 111/58; PULSE 69; RESP 16; TEMP 97.8; O2SAT 99
[2023-12-20 19:28] VITALS: BP 172/62; PULSE 63; RESP 16; TEMP 97.5; O2SAT 98
[2023-12-21 07:00] VITALS: BP 100/59; PULSE 68; RESP 16; TEMP 98; O2SAT 98
[2023-12-21 19:50] VITALS: BP 135/58; PULSE 66; RESP 18; TEMP 97.6; O2SAT 99
[2023-12-21] MEDS: lactulose 20gm/30ml cup PO PRN (20:03)
[2023-12-21] MEDS: docusate sod 100mg capsule PO SCH (20:04)
[2023-12-22 07:00] VITALS: BP 134/87; PULSE 64; RESP 16; TEMP 97.5; O2SAT 99
[2023-12-22 19:00] VITALS: RESP 16; O2SAT 91
[2023-12-22 19:09] VITALS: BP 130/50; PULSE 62; RESP 16; TEMP 97.4; O2SAT 91
[2023-12-22 19:58] VITALS: BP 131/52
[2023-12-22] MEDS: lamoTRIgine 25mg tablet PO SCH (20:27)
[2023-12-23 07:30] VITALS: BP 132/72; PULSE 62; RESP 16; TEMP 97.6; O2SAT 99
[2023-12-23 09:02] VITALS: RESP 16; O2SAT 99
[2023-12-23 19:00] VITALS: RESP 15; O2SAT 98
[2023-12-23 20:00] VITALS: BP 125/56; PULSE 66; RESP 15; TEMP 98
[2023-12-24 07:30] VITALS: BP 154/78; PULSE 65; RESP 20; TEMP 97.6; O2SAT 96
[2023-12-24 08:59] VITALS: RESP 18; O2SAT 95
[2023-12-24 19:00] VITALS: RESP 14; O2SAT 98
[2023-12-24 20:00] VITALS: BP 122/54; PULSE 68; RESP 14; TEMP 97.9; O2SAT 98
[2023-12-25] MEDS: acetaminophen 325mg tablet PO PRN (07:13)
[2023-12-25 07:19] VITALS: RESP 16; O2SAT 98
[2023-12-25 07:23] VITALS: BP 140/56; PULSE 63; RESP 16; TEMP 97.5; O2SAT 98
[2023-12-25 19:00] VITALS: BP 112/53; PULSE 77; RESP 20; TEMP 98; O2SAT 100
[2023-12-25] MEDS: simvastatin 20mg tablet PO ONE (21:54)
[2023-12-26] MEDS: acetaminophen 325mg tablet PO PRN (05:25)
[2023-12-26 07:00] VITALS: RESP 16; O2SAT 98
[2023-12-26 08:48] VITALS: BP 159/76; PULSE 80; RESP 14; TEMP 98.1; O2SAT 96
[2023-12-26] MEDS: simvastatin 20mg tablet PO SCH (17:59)
[2023-12-26 19:00] VITALS: RESP 14; O2SAT 97
[2023-12-26 20:00] VITALS: BP 105/55; PULSE 68; RESP 14; TEMP 98.9; O2SAT 97
[2023-12-27 07:00] VITALS: BP 113/65; PULSE 75; RESP 16; TEMP 98; O2SAT 97
[2023-12-27 19:00] VITALS: RESP 16; O2SAT 98
[2023-12-27 20:00] VITALS: BP 130/70; PULSE 73; RESP 16; TEMP 98.3; O2SAT 98
[2023-12-28 07:00] VITALS: RESP 16; O2SAT 97
[2023-12-28 08:00] VITALS: BP 142/67; PULSE 80; RESP 16; TEMP 99.1; O2SAT 97
[2023-12-28] MEDS ORDERED: ARIP15TA68 PO (13:16)
[2023-12-28] MEDS ORDERED: SIMV-42 PO (13:16)
[2023-12-28] MEDS ORDERED: PANT40TA54 PO (13:16)
[2023-12-28] MEDS ORDERED: LAMO25TA5 PO (13:16)
[2023-12-28 19:26] VITALS: RESP 18; O2SAT 97
[2023-12-28 20:00] VITALS: BP 134/56; PULSE 71; RESP 18; TEMP 97.5; O2SAT 97
[2023-12-29 07:30] VITALS: BP 150/80; PULSE 78; RESP 16; TEMP 97.7; O2SAT 97
[2023-12-29 19:00] VITALS: RESP 18; O2SAT 98
[2023-12-29 20:00] VITALS: BP 108/57; PULSE 68; RESP 18; TEMP 98.4; O2SAT 98
[2023-12-30] MEDS: simvastatin 20mg tablet PO SCH (07:25)
[2023-12-30 07:30] VITALS: BP 112/53; PULSE 64; RESP 16; TEMP 98.1; O2SAT 99
[2023-12-30 19:00] VITALS: RESP 14; O2SAT 97
[2023-12-30 19:46] VITALS: BP 136/55; PULSE 63; RESP 14; TEMP 97.7; O2SAT 97
[2023-12-30] MEDS: ibuprofen tablet 400 MG TABLET PO PRN (22:42)
[2023-12-30 23:02] VITALS: BP 182/90; PULSE 83; RESP 18
[2023-12-31 00:15] VITALS: BP 194/81; PULSE 104; RESP 20; TEMP 97.6; O2SAT 99
[2023-12-31 00:18] VITALS: BP 188/89; PULSE 101; RESP 20; O2SAT 99
[2023-12-31] MEDS ORDERED: potassium Cl 20 mEq SR tablet PO PRN ×2 (00:55)
[2023-12-31] MEDS ORDERED: magnesium hydroxide 30ml (MOM) UD suspension PO PRN (00:55)
[2023-12-31] MEDS ORDERED: magnesium sulf-water 2g/50mL 50 ML IV PRN (00:55)
[2023-12-31] MEDS ORDERED: magnesium sulf-water 4G/100mL 100 ML IV PRN (00:55)
[2023-12-31] MEDS ORDERED: acetaminophen 325mg tablet PO PRN (00:55)
[2023-12-31] MEDS ORDERED: ondansetron/PF 4mg/2ml inj IV PRN (00:55)
[2023-12-31] MEDS ORDERED: morphine 2 MG/ML inj. syringe IV PRN (00:55)
[2023-12-31] MEDS ORDERED: HYDROcodone/acetaminophen 5mg/325mg tablet PO PRN (00:55)
[2023-12-31] MEDS ORDERED: mag hydrox/Alum hydrox/simeth 30ml oral suspension PO PRN (00:55)
[2023-12-31] MEDS ORDERED: magnesium Cl slow-release 64mg tablet PO PRN (00:55)
[2023-12-31] MEDS ORDERED: potassium Cl 40MEQ/1/2NS 520ml 520 ML IV PRN (00:55)
[2023-12-31 01:31] LABS: ALANINE AMINOTRANSFERASE 24 U/L (12-78); ALBUMIN 3.7 G/DL (3.4-5.0); ALBUMIN/GLOBULIN RATIO 1.2 (1.1-1.5); ALKALINE PHOSPHATASE 97 IU/L (46-116); ANION GAP 5 (8-16); ASPARTATE AMINO TRANSFERASE 22 U/L (10-37); BILIRUBIN,TOTAL 0.3 MG/DL (0.1-1.0); BLOOD UREA NITROGEN 30 MG/DL (7-18); BUN/CREATININE RATIO 22.9 (10.0-20.0); CALCIUM 9.3 MG/DL (8.5-10.1); CHLORIDE 91 MMOL/L (99-107); CREATININE 1.31 MG/DL (0.40-0.90); GLUCOSE 108 MG/DL (70-104); POTASSIUM 4.4 MMOL/L (3.5-5.1); SODIUM 124 MMOL/L (135-145); TOTAL CARBON DIOXIDE 28.3 MMOL/L (24-32); TOTAL PROTEIN 6.9 G/DL (6.4-8.2); eCRCL 29 ML/MIN; eGFR 39 ML/MIN
[2023-12-31] MEDS ORDERED: docusate sod 100mg capsule PO SCH (08:00)
[2023-12-31] MEDS ORDERED: K and/or MAG REPLACEMENT MC SCH (08:00)
== END 2023-12-31 01:15 | disposition home or self-care (01) | DRG 885 ==
LOC: ER 18:08 → ED HOLD 12-10 12:45 → UNDOADMIN 12-10 12:45 → ADULT MH 12-10 13:57 → ED HOLD 12-10 13:57 → ADULT MH 12-17 07:32
PROVIDERS: ADMIT Psychiatry & Neurology Psychiatry; ATTEND Psychiatry & Neurology Psychiatry
PROC: GZHZZZZ Group Psychotherapy (ICD-10-PCS; principal; 2023-12-11)
PROC: GZ51ZZZ Individual Psychotherapy, Behavioral (ICD-10-PCS; 2023-12-12)
DX: F31.9 Bipolar disorder, unspecified (principal); F23 Brief psychotic disorder; E05.00 Thyrotoxicosis with diffuse goiter without thyrotoxic crisis or storm; K21.9 Gastro-esophageal reflux disease without esophagitis; Z20.822 Contact with and (suspected) exposure to COVID-19; I49.9 Cardiac arrhythmia, unspecified; I48.91 Unspecified atrial fibrillation; I10 Essential (primary) hypertension; J44.9 Chronic obstructive pulmonary disease, unspecified; E11.9 Type 2 diabetes mellitus without complications; E78.00 Pure hypercholesterolemia, unspecified; K59.00 Constipation, unspecified; Z88.0 Allergy status to penicillin; Z88.2 Allergy status to sulfonamides; Z79.82 Long term (current) use of aspirin; Z79.899 Other long term (current) drug therapy
CPT/HCPCS: 36415; 70450; 80048; 80053; 80305; 80320; 81001; 84443; 84484; 85025; 87081; 87811; 93005; 99285; A6250; J7030

== ENCOUNTER 2023-12-31 00:56 | Inpatient (IN) | payer MEDICARE, BC ==
[~2023-12-31] VITALS: Ht 165.1 cm; Wt 74.0 kg
[~2023-12-31 00:56] MED LIST changes: -AMLO10TA13 PO; +AMLO10TA5 PO; -ARIP10TA87 PO; +ARIP15TA68 PO; -ASPI-1071 PO; -CLON-850 PO; -ESTR1TAB28 PO; -HYDR25TA4 PO; +LAMO25TA5 PO; -LAMO25TA94 PO; -LOSA100T58 PO; -OLAN5TAB5 PO; -OXCA600T9 PO; +PANT-47 PO; -PANT20TA18 PO; +SIMV-42 PO
[2023-12-31] MEDS: normal saline 1000ml 1,000 ML IV SCH (01:00)
[2023-12-31 01:20] VITALS: BP 160/87; PULSE 92; RESP 19; TEMP 98; O2SAT 96
[2023-12-31] MEDS ORDERED: magnesium Cl slow-release 64mg tablet PO PRN (02:55)
[2023-12-31] MEDS ORDERED: magnesium hydroxide 30ml (MOM) UD suspension PO PRN (02:55)
[2023-12-31] MEDS ORDERED: acetaminophen 325mg tablet PO PRN (02:55)
[2023-12-31] MEDS ORDERED: magnesium sulf-water 4G/100mL 100 ML IV PRN (02:55)
[2023-12-31] MEDS ORDERED: magnesium sulf-water 2g/50mL 50 ML IV PRN (02:55)
[2023-12-31] MEDS ORDERED: potassium Cl 40MEQ/1/2NS 520ml 520 ML IV PRN (02:55)
[2023-12-31] MEDS ORDERED: ondansetron/PF 4mg/2ml inj IV PRN (02:55)
[2023-12-31] MEDS ORDERED: morphine 2 MG/ML inj. syringe IV PRN (02:55)
[2023-12-31] MEDS ORDERED: HYDROcodone/acetaminophen 5mg/325mg tablet PO PRN (02:55)
[2023-12-31] MEDS ORDERED: potassium Cl 20 mEq SR tablet PO PRN ×2 (02:55)
[2023-12-31] MEDS ORDERED: mag hydrox/Alum hydrox/simeth 30ml oral suspension PO PRN (02:55)
[2023-12-31 03:16] LABS: BASOPHILS % (AUTO) 0.4 % (0-1); EOSINOPHILS # (AUTO) 0.3 X10'3 (0-0.9); EOSINOPHILS % (AUTO) 3.9 % (0-6); HEMATOCRIT 31.7 % (35.0-45.0); HEMOGLOBIN 10.6 g/dl (12.0-16.0); LYMPHOCYTES # (AUTO) 2.4 X10'3 (1.1-4.8); MEAN CORPUSCULAR HEMOGLOBIN 32.3 PG (27.0-31.0); MEAN CORPUSCULAR HGB CONC 33.5 g/dL (33.0-36.5); MEAN CORPUSCULAR VOLUME 96.4 FL (78-98); MEAN PLATELET VOLUME 8.5 FL (7.4-10.4); MONOCYTES # (AUTO) 0.9 X10'3 (0-0.9); MONOCYTES % (AUTO) 11.3 % (2-12); NEUTROPHILS # (AUTO) 4.3 X10'3 (1.8-7.7); NEUTROPHILS % (AUTO) 54.4 % (42-75); PLATELET COUNT 254 X10'3 (140-440); RED BLOOD COUNT 3.29 X10'6 (4.20-5.60); RED CELL DISTRIBUTION WIDTH 13.8 % (11.5-14.5); WHITE BLOOD COUNT 7.9 X10'3 (4.5-11.0)
[2023-12-31 03:54] LABS: HEMOGLOBIN A1C 6.1 % (4.5-6.2)
[2023-12-31 04:03] LABS: MAGNESIUM 1.5 MG/DL (1.5-2.4); POTASSIUM 4.5 MMOL/L (3.5-5.1)
[2023-12-31] MEDS ORDERED: PERFLUTREN PROTEIN-A MICROSPHR (Optison) 0.22 MG/ML 3ML VIAL IV ONE (04:05)
[2023-12-31] MEDS ORDERED: labetalol 20mg/4ml (5mg/ml) syringe IV PRN (04:05)
[2023-12-31 04:13] LABS: SODIUM,URINE RANDOM 32 MEQ/L
[2023-12-31 05:05] LABS: OSMOLALITY UA 145 MOSM/K (50-1400)
[2023-12-31] MEDS: aspirin 325mg tablet, delayed-release (Ecotrin) PO ONE (05:26)
[2023-12-31 06:00] VITALS: BP 118/65; PULSE 90; RESP 17; TEMP 97.1; O2SAT 95
[2023-12-31 07:16] LABS: CHOL/HDL RATIO 2.1 (0.00-4.99); CHOLESTEROL 149 MG/DL (0-200); HDL CHOLESTEROL 71 MG/DL (35-60); LDL CHOLESTEROL 68 MG/DL (50-100); SODIUM 126 MMOL/L (135-145); TRIGLYCERIDES 81 MG/DL (20-135)
[2023-12-31] MEDS: K and/or MAG REPLACEMENT MC SCH (08:00)
[2023-12-31 10:00] VITALS: BP 144/61; PULSE 82; RESP 18; TEMP 97.6; O2SAT 98
[2023-12-31] MEDS: docusate sod 100mg capsule PO SCH (10:06)
[2023-12-31] MEDS: atorvastatin 20mg tablet PO STA (10:06)
[2023-12-31 18:00] VITALS: BP 174/81; PULSE 103; RESP 12; TEMP 97.8; O2SAT 100
[2023-12-31 20:00] VITALS: RESP 12; O2SAT 100
[2023-12-31] MEDS ORDERED: atorvastatin 20mg tablet PO SCH (20:00)
[2023-12-31] MEDS: atorvastatin 20mg tablet PO SCH (20:27)
[2023-12-31] MEDS: aspirin 81mg, enteric-coated 1 TAB TABLET.DR PO SCH (20:31)
[2023-12-31 22:00] VITALS: BP 132/53; PULSE 67; RESP 16; TEMP 97.4; O2SAT 94
[2023-12-31] MEDS: aripiprazole 15 MG tablet PO SCH (22:03)
[2023-12-31] MEDS: lamoTRIgine 25mg tablet PO SCH (22:03)
[2023-12-31] MEDS: losartan 50mg tablet PO SCH (22:30)
[2023-12-31] MEDS: HYDROchlorothiazide 25mg tablet PO SCH (22:30)
[2023-12-31] MEDS: flecainide 50mg tablet PO ONE (22:30)
[2024-01-01 04:00] VITALS: BP 126/71; PULSE 75; RESP 18; TEMP 97.8; O2SAT 100
[2024-01-01 06:37] LABS: BASOPHILS % (AUTO) 0.4 % (0-1); EOSINOPHILS # (AUTO) 0.3 X10'3 (0-0.9); HEMATOCRIT 30.7 % (35.0-45.0); HEMOGLOBIN 10.6 g/dl (12.0-16.0); LYMPHOCYTES # (AUTO) 1.6 X10'3 (1.1-4.8); LYMPHOCYTES % (AUTO) 25.9 % (21-51); MEAN CORPUSCULAR HEMOGLOBIN 33.2 PG (27.0-31.0); MEAN CORPUSCULAR HGB CONC 34.4 g/dL (33.0-36.5); MEAN CORPUSCULAR VOLUME 96.5 FL (78-98); MEAN PLATELET VOLUME 7.4 FL (7.4-10.4); MONOCYTES # (AUTO) 0.7 X10'3 (0-0.9); MONOCYTES % (AUTO) 11.9 % (2-12); NEUTROPHILS # (AUTO) 3.5 X10'3 (1.8-7.7); NEUTROPHILS % (AUTO) 56.8 % (42-75); PLATELET COUNT 246 X10'3 (140-440); RED BLOOD COUNT 3.18 X10'6 (4.20-5.60); RED CELL DISTRIBUTION WIDTH 13.9 % (11.5-14.5); WHITE BLOOD COUNT 6.2 X10'3 (4.5-11.0)
[2024-01-01 06:44] VITALS: BP 127/50; PULSE 70; RESP 16; TEMP 98.1; O2SAT 97
[2024-01-01 06:51] LABS: ALBUMIN 3.1 G/DL (3.4-5.0); ANION GAP 5 (8-16); BLOOD UREA NITROGEN 30 MG/DL (7-18); BUN/CREATININE RATIO 27.5 (10.0-20.0); CALCIUM 9.7 MG/DL (8.5-10.1); CHLORIDE 108 MMOL/L (99-107); CHOL/HDL RATIO 2.3 (0.00-4.99); CHOLESTEROL 153 MG/DL (0-200); CREATININE 1.09 MG/DL (0.40-0.90); GLUCOSE 114 MG/DL (70-104); HDL CHOLESTEROL 66 MG/DL (35-60); LDL CHOLESTEROL 74 MG/DL (50-100); MAGNESIUM 1.8 MG/DL (1.5-2.4); POTASSIUM 4.4 MMOL/L (3.5-5.1); SODIUM 139 MMOL/L (135-145); TOTAL CARBON DIOXIDE 26.5 MMOL/L (24-32); TRIGLYCERIDES 63 MG/DL (20-135); eCRCL 36 ML/MIN; eGFR 48 ML/MIN
[2024-01-01] MEDS: estradiol 1mg tablet PO SCH (07:42)
[2024-01-01] MEDS: amLODIPine 5mg tablet PO SCH (07:44)
[2024-01-01] MEDS: flecainide 50mg tablet PO SCH (07:44)
[2024-01-01] MEDS: pantoprazole 40mg Tablet.DR PO SCH (07:44)
[2024-01-01 08:00] VITALS: RESP 16; O2SAT 97
[2024-01-01] MEDS: dextrose 5%-water 1,000 ML IV SCH (08:52)
[2024-01-01 10:00] VITALS: BP 105/58; PULSE 71; RESP 17; TEMP 98.5; O2SAT 97
[2024-01-01] MEDS ORDERED: simvastatin 20mg tablet PO SCH (17:30)
== END 2024-01-01 14:25 | disposition home or self-care (01) | DRG 69 ==
LOC: ORTHO 4S 00:56 → UNDOADMIN 00:56 → ORTHO 4S 02:55 → UNDODISIN 01-01 14:25
PROVIDERS: ADMIT Surgery Surgical Critical Care; ATTEND Nurse Practitioner Family
DX: G45.9 Transient cerebral ischemic attack, unspecified (principal); E87.1 Hypo-osmolality and hyponatremia; I16.1 Hypertensive emergency; N17.9 Acute kidney failure, unspecified; E78.5 Hyperlipidemia, unspecified; F31.9 Bipolar disorder, unspecified; J44.9 Chronic obstructive pulmonary disease, unspecified; K21.9 Gastro-esophageal reflux disease without esophagitis; I10 Essential (primary) hypertension; Z88.0 Allergy status to penicillin; Z79.899 Other long term (current) drug therapy; Z88.2 Allergy status to sulfonamides
CPT/HCPCS: 36415; 70544; 70547; 70551; 80048; 80061; 83036; 83735; 83930; 83935; 84132; 84295; 84300; 84484; 85025; 87081; 92508; 92616; 93306; 97161; 97530; G0378; J7030; J7070

== ENCOUNTER 2024-04-14 08:30 | Day surgery (SDC) | payer MEDICARE, BC ==
[~2024-04-14] VITALS: Ht 162.6 cm; Wt 80.8 kg
[2024-04-14] VITALS (11 sets, daily range): BP systolic 114–158; BP diastolic 34–70; PULSE 50–74; RESP 10–15; TEMP 97.8; O2SAT 94–99
[~2024-04-14 08:30] MED LIST changes: -HYDR25TA5 PO; -PANT-47 PO; -PANT40TA54 PO
[2024-04-14 09:32] LABS: BASOPHILS % (AUTO) 0.4 % (0-1); EOSINOPHILS # (AUTO) 0.1 X10'3 (0-0.9); EOSINOPHILS % (AUTO) 1.7 % (0-6); HEMATOCRIT 37.8 % (35.0-45.0); HEMOGLOBIN 12.9 g/dl (12.0-16.0); LYMPHOCYTES # (AUTO) 1.3 X10'3 (1.1-4.8); MEAN CORPUSCULAR HEMOGLOBIN 32.3 PG (27.0-31.0); MEAN CORPUSCULAR HGB CONC 34.1 g/dL (33.0-36.5); MEAN CORPUSCULAR VOLUME 94.9 FL (78-98); MEAN PLATELET VOLUME 7.5 FL (7.4-10.4); MONOCYTES # (AUTO) 0.6 X10'3 (0-0.9); MONOCYTES % (AUTO) 9.5 % (2-12); NEUTROPHILS # (AUTO) 4.6 X10'3 (1.8-7.7); NEUTROPHILS % (AUTO) 69.4 % (42-75); PLATELET COUNT 233 X10'3 (140-440); RED BLOOD COUNT 3.99 X10'6 (4.20-5.60); RED CELL DISTRIBUTION WIDTH 12.9 % (11.5-14.5); WHITE BLOOD COUNT 6.6 X10'3 (4.5-11.0)
[2024-04-14] MEDS ORDERED: DESV25TA PO (09:37)
[2024-04-14] MEDS ORDERED: NITR0.4T51 SL (09:37)
[2024-04-14] MEDS ORDERED: ARIP15TA3 PO (09:37)
[2024-04-14] MEDS ORDERED: RIVA20TA PO (09:37)
[2024-04-14] MEDS ORDERED: SIMV-45 PO (09:37)
[2024-04-14] MEDS ORDERED: ESTR1TAB28 PO (09:37)
[2024-04-14] MEDS ORDERED: LOSA-416 PO (09:37)
[2024-04-14] MEDS ORDERED: LAMO25TA4 PO (09:37)
[2024-04-14] MEDS ORDERED: BUDE90AE4 PO (09:37)
[2024-04-14 09:38] LABS: ALBUMIN 3.6 G/DL (3.4-5.0); ANION GAP 7 (8-16); BLOOD UREA NITROGEN 22 MG/DL (7-18); BUN/CREATININE RATIO 23.2 (10.0-20.0); CALCIUM 10.5 MG/DL (8.5-10.1); CHLORIDE 104 MMOL/L (99-107); CREATININE 0.95 MG/DL (0.40-0.90); GLUCOSE 119 MG/DL (70-104); MAGNESIUM 1.8 MG/DL (1.5-2.4); POTASSIUM 4.2 MMOL/L (3.5-5.1); SODIUM 139 MMOL/L (135-145); TOTAL CARBON DIOXIDE 28.3 MMOL/L (24-32); eCRCL 40 ML/MIN; eGFR 56 ML/MIN
[2024-04-14] MEDS ORDERED: PANT20TA18 PO (09:39)
[2024-04-14 09:40] LABS: PROTHROMBIN TIME 10.1 SECONDS (9.0-12.0)
[2024-04-14] MEDS: diphenhydrAMINE 25mg capsule PO PRN (09:51)
[2024-04-14] MEDS ORDERED: verapamil 2.5 mg/ml inj IV ONE ×2 (10:29→12:07)
[2024-04-14] MEDS ORDERED: midazolam 1 mg/ML 2ml injection ONE ×2 (10:29→11:15)
[2024-04-14] MEDS ORDERED: LIDOcaine 1% (10mg/ml) 2ml vial ONE (10:29)
[2024-04-14] MEDS ORDERED: fentaNYL/PF 50MCG/1 ML 2ML syringe ONE (10:29)
[2024-04-14] MEDS ORDERED: iohexol 350MG/ML 100ml bottle IV ONE (10:30)
[2024-04-14] MEDS ORDERED: iohexol 350 MG/ML 50ML vial IV ONE ×2 (10:30→12:02)
[2024-04-14] MEDS ORDERED: heparin 1,000unit/ml 10ml vial 10 ML ONE (10:30)
[2024-04-14] MEDS ORDERED: nitroGLYCERIN 500mcg/5mL D5W 5 ML IV ONE ×3 (10:33→12:10)
[2024-04-14] MEDS: sodium bicarbonate 1meq/ml syr 150 ML in dextrose 5%-water 1,000 ML IV ONE (10:42)
[2024-04-14] MEDS: normal saline 1,000 ML IV SCH (10:42)
[2024-04-14] MEDS ORDERED: LIDOcaine 1% 30ml preserv. free vial ONE (11:45)
[2024-04-14] MEDS ORDERED: enalaprilat 1.25mg/ml 2ml vial IV ONE (12:12)
[2024-04-14] MEDS ORDERED: hydrALAZINE 20mg/ml inj. ONE (12:15)
[2024-04-14] MEDS ORDERED: protamine sulfate 10mg/ml inj. ONE (12:31)
[2024-04-14] MEDS ORDERED: proCHLORperazine 10 MG/2 ml inj IV PRN (13:20)
[2024-04-14] MEDS ORDERED: HYDROcodone/acetaminophen 5mg/325mg tablet PO PRN (13:20)
[2024-04-14] MEDS ORDERED: ondansetron/PF 4mg/2ml inj IV PRN (13:20)
[2024-04-14] MEDS ORDERED: HYDROcodone/acetaminophen 10/325mg tab PO PRN (13:20)
== END 2024-04-14 17:45 | disposition home or self-care (01) ==
LOC: SSTAY O 08:30
PROVIDERS: ATTEND Internal Medicine Cardiovascular Disease
DX: R07.89 Other chest pain (principal); E78.00 Pure hypercholesterolemia, unspecified; I10 Essential (primary) hypertension; E11.9 Type 2 diabetes mellitus without complications; J44.9 Chronic obstructive pulmonary disease, unspecified; Z86.14 Personal history of Methicillin resistant Staphylococcus aureus infection; Z98.890 Other specified postprocedural states; Z96.653 Presence of artificial knee joint, bilateral
CPT/HCPCS: 36415; 80048; 83735; 85025; 85610; 93005; 93458; 99152; 99153; A6258; A6402; C1760; C1769; C1894; J0360; J1644; J2003; J2250; J2720; J3010; J3490; J7030; J7070; Q0163; Q9967; Z7610; A6449

== ENCOUNTER 2024-10-04 15:46 | Outpatient (CLI) | payer MEDICARE, BC ==
[~2024-10-04 15:46] MED LIST changes: -AMLO10TA5 PO; +ARIP15TA3 PO; -ARIP15TA68 PO; -ASPI81TA52 PO; +BUDE90AE4 PO; +DESV25TA PO; -EST1T PO; +ESTR1TAB28 PO; +LAMO25TA4 PO; -LAMO25TA5 PO; +LOSA-416 PO; -LOSA50TA64 PO; +NITR0.4T51 SL; +PANT20TA18 PO; +RIVA20TA PO; -SIMV-42 PO; +SIMV-45 PO; -TAM50T PO
[2024-10-04 16:35] VITALS: PULSE 50; RESP 16; O2SAT 97
== END 2024-10-04 23:59 | disposition home or self-care (01) ==
LOC: RT 15:46
PROVIDERS: ATTEND Family Medicine
DX: J44.9 Chronic obstructive pulmonary disease, unspecified (principal)
CPT/HCPCS: 94010; 94729; 94760

== ENCOUNTER 2024-10-13 12:00 | Outpatient (CLI) | payer MEDICARE, BC ==
--- NOTE | 2024-10-14 17:12 | CARDIOLOGY REPORT ---
APPROVED REPORT EXAM: Comprehensive 2D, Doppler, and color-flow Echocardiogram. Patient Location: OUT-PATIENT Blood Pressure: 167/74 mmHg Heart Rate: 61 bpm Rhythm: NSR Indications SOB Hypertension [employer] Leader is Chetan Greer DO Previous echo 12/31/23 [facility] 65-70% EF ; tr MR TR 2D Dimensions LA Diam4.8 cm IVSd 1.0 (0.7-1.1cm) LVDd 5.1 cm PWd 1.0 (0.7-1.1cm) IVSs 1.5 (0.8-1.2cm) LVDs 2.7 (2.5-4.0cm) Aortic Root(2D) 2.7 cm PWs 1.4 (0.8-1.2cm) LVOT Diameter 1.96 (1.8-2.4cm) LVEF(%) 77.4 (>50%) IVC 16.66 mmFS (%) 46.2 % SV 94.5 ml M-Mode Dimensions MV EPSS 0.5 (<0.5cm) Aortic Valve AoV Peak Yonas. 176.1 cm/s AoV VTI 39.3 cm AO Peak GR. 12.4 mmHg AO Mean GR. 6 mmHg LVOT VTI 31.76 cm LVOT Peak Yonas. 129.7 cm/s TRAVIS (VMAX) 2.22 cm2 TRAVIS (VTI) 2.44 cm2 Mitral Valve MV E Velocity 66.0 cm/s MV DECEL TIME 253 ms MV A Velocity 98.3 cm/s MV PHT 43 ms E/A Ratio 0.7 MVA (PHT) 5.12 cm2 TDI E/Medial E' 8.6 Tricuspid Valve TR P. Velocity 267 cm/s RAP ESTIMATE 10 mmHg TR Peak Gr. 29 mmHg RVSP 39 mmHg Pulmonary Vein S2 Velocity 69.70 cm/s PVa [id number] msec LEFT VENTRICLE Normal LV size and wall thickness. Overall systolic function is normal. LVEF is 65-70%. RIGHT VENTRICLE RV appears normal in size and function. RVSP is estimated at 39 mmHG. ATRIA Left atrium is moderately dilated. AORTIC VALVE Trileaflet AV appears very minimally sclerotic without stenosis. Trace to mild insufficiency. MITRAL VALVE Mild annular thickening. Trace mitral regurgitation. TRICUSPID VALVE The tricuspid valve is normal in structure. Trace tricuspid regurgitation. PULMONIC VALVE The pulmonary valve is normal in structure. Trace pulmonic regurgitation. GREAT VESSELS The aortic root is normal in size. The ascending aorta is measured at 3.5 cm. The IVC is normal in si ze and collapses >50% with inspiration. PERICARDIUM There is no pericardial effusion. Other Information Study Quality: Adequate
== END 2024-10-13 23:59 | disposition home or self-care (01) ==
LOC: RAD 12:00
PROVIDERS: ATTEND Family Medicine
DX: I08.0 Rheumatic disorders of both mitral and aortic valves (principal); R06.02 Shortness of breath; I11.9 Hypertensive heart disease without heart failure; E83.52 Hypercalcemia
CPT/HCPCS: 36415; 82306; 93306